=== PATIENT | female | born 1985 | race American Indian/Alaskan Native ===

== ENCOUNTER 2017-12-20 18:46 | Emergency (ER) | payer MEDICAID ==
[~2017-12-20] VITALS: Ht 167.6 cm; Wt 104.5 kg
[~2017-12-20 18:46] MED LIST: CLON-528 PO; FLUO20CA39 PO; HYDR-565 PO; INSU100V12 SQ; INSU100V36 SQ
[2017-12-20 19:46] LABS: BASOPHILS % (AUTO) 0.1 % (0-1); EOSINOPHILS # (AUTO) 0.2 X10'3 (0-0.9); EOSINOPHILS % (AUTO) 1.4 % (0-6); HEMOGLOBIN 15.2 g/dl (12.0-16.0); LYMPHOCYTES # (AUTO) 1.2 X10'3 (1.1-4.8); MEAN CORPUSCULAR HEMOGLOBIN 25.9 PG (27.0-31.0); MEAN CORPUSCULAR HGB CONC 33.8 % (33.0-36.5); MEAN CORPUSCULAR VOLUME 76.5 FL (78-98); MEAN PLATELET VOLUME 8.9 FL (7.4-10.4); MONOCYTES # (AUTO) 1.1 X10'3 (0-0.9); MONOCYTES % (AUTO) 8.3 % (2-12); NEUTROPHILS % (AUTO) 81.2 % (42-75); PLATELET COUNT 208 X10'3 (140-440); RED BLOOD COUNT 5.87 X10'6 (4.20-5.60); RED CELL DISTRIBUTION WIDTH 14.3 % (11.5-14.5); WHITE BLOOD COUNT 13.6 X10'3 (4.5-11.0)
[2017-12-20 19:56] LABS: PROTHROMBIN TIME 10.7 SECONDS (9.0-12.0)
[2017-12-20 20:00] LABS: ALANINE AMINOTRANSFERASE 33 U/L (12-78); ALBUMIN 3.3 G/DL (3.4-5.0); ALBUMIN/GLOBULIN RATIO 0.7 (1.1-1.5); ALKALINE PHOSPHATASE 108 IU/L (46-116); ANION GAP 10 (8-16); ASPARTATE AMINO TRANSFERASE 15 U/L (10-37); BILIRUBIN,TOTAL 1.1 MG/DL (0.1-1.0); BLOOD UREA NITROGEN 8 MG/DL (7-18); CALCIUM 9.2 MG/DL (8.5-10.1); CHLORIDE 99 MMOL/L (99-107); CREATININE 1.14 MG/DL (0.40-0.90); GLUCOSE 285 MG/DL (70-104); POTASSIUM 3.4 MMOL/L (3.5-5.1); SODIUM 136 MMOL/L (135-145); TOTAL CARBON DIOXIDE 26.9 MMOL/L (24-32); TOTAL PROTEIN 7.9 G/DL (6.4-8.2); eGFR 55 ML/MIN
[2017-12-20] MEDS ORDERED: ondansetron/PF 4mg/2ml inj IV ONE (21:40)
[2017-12-20] MEDS ORDERED: normal saline 1000ML IV soln IVB ONE (21:40)
[2017-12-20 21:59] LABS: LIPASE 51 U/L (73-393)
[2017-12-20] MEDS ORDERED: metoclopramide 5 mg/ml inj IV ONE (22:00)
[2017-12-20] MEDS ORDERED: diphenhydrAMINE 50 mg/ml inj IV ONE (22:00)
[2017-12-20 22:11] LABS: URINE HCG NEGATIVE (NEG)
[2017-12-20 22:12] LABS: CLARITY,URINE CLOUDY (Clear); COLOR,URINE YELLOW (Yellow); GLUCOSE, URINE 250 mg/dl (Neg); KETONES,URINE TRACE mg/dl (Neg); LEUKOCYTE ESTERASE ,URINE SMALL (Neg); NITRITES, URINE POSITIVE (Neg); OCCULT BLOOD,URINE MODERATE (Neg); PROTEIN,URINE >=300 mg/dl (Neg)
[2017-12-20 22:19] LABS: UA COLLECTION TYPE CLN CATCH MIDSTREAM
[2017-12-20 22:21] LABS: BACTERIA,URINE 4+ /HPF (Neg); SQUAMOUS EPITHELIAL CELL,UR MODERATE /LPF (FEW); WBC,URINE TNTC /HPF (0-4)
[2017-12-20] MEDS ORDERED: phenazopyridine 100mg tablet PO ONE (23:25)
[2017-12-20] MEDS ORDERED: ciprofloxacin 250mg tablet PO ONE (23:25)
[2017-12-20] MEDS ORDERED: ONDA8TAB6 PO (23:29)
[2017-12-20] MEDS ORDERED: CIPR-230 PO (23:29)
[2017-12-20] MEDS ORDERED: PHEN-824 PO (23:29)
[2017-12-20 23:49] VITALS: BP 114/71
== END 2017-12-20 23:53 | disposition home or self-care (01) ==
LOC: ER 18:47
DX: N39.0 Urinary tract infection, site not specified (principal); R10.9 Unspecified abdominal pain; R11.2 Nausea with vomiting, unspecified; E11.9 Type 2 diabetes mellitus without complications; J45.909 Unspecified asthma, uncomplicated; Z87.891 Personal history of nicotine dependence; Z90.710 Acquired absence of both cervix and uterus; Z88.8 Allergy status to other drugs, medicaments and biological substances; Z79.4 Long term (current) use of insulin; Z79.899 Other long term (current) drug therapy
CPT/HCPCS: 36415; 80053; 81001; 81025; 82948; 83690; 85025; 85610; 87077; 87088; 87186; 96361; 96374; 96375; 99284; J1200; J2765; J7030

== ENCOUNTER 2018-01-09 08:51 | Emergency (ER) | payer MEDICAID ==
[~2018-01-09] VITALS: Ht 167.6 cm; Wt 111.3 kg
[~2018-01-09 08:51] MED LIST changes: +CIPR-230 PO; +ONDA8TAB6 PO; +PHEN-824 PO
[2018-01-09] MEDS ORDERED: TETanus/Pertussis (Acell)/Diphther VAC/PF (Tdap-Adult) 0.5ml syringe IM ONE (10:35)
[2018-01-09] MEDS ORDERED: LIDOcaine 1% 30ml preserv. free vial IJ ONE (10:35)
[2018-01-09] MEDS ORDERED: LIDOcaine 1%/PF (10mg/ml) 5ml vial IJ ONE (11:20)
[2018-01-09] MEDS ORDERED: DOXY100C43 PO (11:52)
[2018-01-09] MEDS ORDERED: FLUC150T PO (11:52)
[2018-01-09] MEDS ORDERED: HYDR-569 PO (11:52)
[2018-01-09] MEDS ORDERED: CEPH-571 PO (11:52)
[2018-01-09 12:02] VITALS: BP 108/68
== END 2018-01-09 12:21 | disposition home or self-care (01) ==
LOC: ER 08:51
DX: N76.4 Abscess of vulva (principal); B37.3 Candidiasis of vulva and vagina; J45.909 Unspecified asthma, uncomplicated; E11.9 Type 2 diabetes mellitus without complications; Z90.710 Acquired absence of both cervix and uterus; Z79.4 Long term (current) use of insulin; Z79.899 Other long term (current) drug therapy; Z88.8 Allergy status to other drugs, medicaments and biological substances
CPT/HCPCS: 56405; 90471; 90715; 99284; A6449; J2001; J3490

== ENCOUNTER 2018-04-09 08:15 | Emergency (ER) | payer MEDICAID ==
[~2018-04-09] VITALS: Ht 167.6 cm; Wt 118.0 kg
[~2018-04-09 08:15] MED LIST changes: +CEPH-571 PO; -CIPR-230 PO; +HYDR-569 PO
[2018-04-09] MEDS ORDERED: morphine 4 MG/ML inj SYRINge IV PRN (08:35)
[2018-04-09] MEDS ORDERED: normal saline 1000ML IV soln IVB ONE (08:35)
[2018-04-09] MEDS ORDERED: ondansetron/PF 4mg/2ml inj IV ONE (08:35)
[2018-04-09 08:59] LABS: BASOPHILS % (AUTO) 0.3 % (0-1); EOSINOPHILS # (AUTO) 0.4 X10'3 (0-0.9); EOSINOPHILS % (AUTO) 3.5 % (0-6); HEMATOCRIT 43.2 % (35.0-45.0); HEMOGLOBIN 14.6 g/dl (12.0-16.0); LYMPHOCYTES # (AUTO) 2.7 X10'3 (1.1-4.8); LYMPHOCYTES % (AUTO) 22.1 % (21-51); MEAN CORPUSCULAR HEMOGLOBIN 26.9 PG (27.0-31.0); MEAN CORPUSCULAR HGB CONC 33.8 % (33.0-36.5); MEAN CORPUSCULAR VOLUME 79.6 FL (78-98); MEAN PLATELET VOLUME 8.9 FL (7.4-10.4); MONOCYTES # (AUTO) 0.5 X10'3 (0-0.9); MONOCYTES % (AUTO) 4.4 % (2-12); NEUTROPHILS # (AUTO) 8.4 X10'3 (1.8-7.7); NEUTROPHILS % (AUTO) 69.7 % (42-75); PLATELET COUNT 212 X10'3 (140-440); RED BLOOD COUNT 5.43 X10'6 (4.20-5.60); RED CELL DISTRIBUTION WIDTH 13.8 % (11.5-14.5); WHITE BLOOD COUNT 12.1 X10'3 (4.5-11.0)
[2018-04-09 09:00] LABS: INR 0.9 INR; PROTHROMBIN TIME 9.8 SECONDS (9.0-12.0)
[2018-04-09 09:07] LABS: ALANINE AMINOTRANSFERASE 33 U/L (12-78); ALBUMIN 3.1 G/DL (3.4-5.0); ALBUMIN/GLOBULIN RATIO 0.7 (1.1-1.5); ALKALINE PHOSPHATASE 118 IU/L (46-116); ANION GAP 7 (8-16); ASPARTATE AMINO TRANSFERASE 11 U/L (10-37); BILIRUBIN,TOTAL 0.3 MG/DL (0.1-1.0); BLOOD UREA NITROGEN 8 MG/DL (7-18); BUN/CREATININE RATIO 8.7 (6.6-38.0); CALCIUM 8.5 MG/DL (8.5-10.1); CHLORIDE 98 MMOL/L (99-107); CREATININE 0.92 MG/DL (0.40-0.90); GLUCOSE 370 MG/DL (70-104); LIPASE 95 U/L (73-393); POTASSIUM 3.8 MMOL/L (3.5-5.1); SODIUM 132 MMOL/L (135-145); TOTAL CARBON DIOXIDE 27.1 MMOL/L (24-32); TOTAL PROTEIN 7.3 G/DL (6.4-8.2); eGFR 70 ML/MIN
[2018-04-09 10:10] LABS: URINE HCG NEGATIVE (NEG)
[2018-04-09 10:11] LABS: CLARITY,URINE CLOUDY (Clear); COLOR,URINE YELLOW (Yellow); GLUCOSE, URINE >=1000 mg/dl (Neg); KETONES,URINE NEGATIVE (Neg); LEUKOCYTE ESTERASE ,URINE TRACE (Neg); NITRITES, URINE NEGATIVE (Neg); OCCULT BLOOD,URINE TRACE-LYSED (Neg); PH,URINE 6.5 (4.8-8.0); PROTEIN,URINE NEGATIVE (Neg); UROBILINOGEN,URINE 0.2 E.U/dL (0.2-1.0)
[2018-04-09 10:17] LABS: UA COLLECTION TYPE CLN CATCH MIDSTREAM
[2018-04-09 10:19] LABS: RBC,URINE 0-2 /HPF (0-2); WBC,URINE 50-100 /HPF (0-4)
[2018-04-09 10:20] LABS: BACTERIA,URINE FEW /HPF (Neg); SQUAMOUS EPITHELIAL CELL,UR MODERATE /LPF (FEW)
[2018-04-09 10:22] LABS: WBC CLUMPS,URINE MODERATE /HPF (NEGATIVE)
[2018-04-09] MEDS ORDERED: BACDS PO (10:26)
[2018-04-09] MEDS ORDERED: ONDA4TAB9 SL (10:26)
[2018-04-09 10:45] VITALS: BP 136/74
== END 2018-04-09 10:45 | disposition home or self-care (01) ==
LOC: ER 08:15
DX: N39.0 Urinary tract infection, site not specified (principal); E11.9 Type 2 diabetes mellitus without complications; J45.909 Unspecified asthma, uncomplicated; Z90.710 Acquired absence of both cervix and uterus; Z88.8 Allergy status to other drugs, medicaments and biological substances; Z79.4 Long term (current) use of insulin; Z79.899 Other long term (current) drug therapy
CPT/HCPCS: 36415; 80053; 81001; 81025; 82948; 83690; 85025; 85610; 87088; 96374; 96375; 99285; J2270; J2405; J7030

== ENCOUNTER 2018-04-11 00:58 | Inpatient (IN) | payer MEDICAID ==
[2018-04-11] VITALS (16 sets, daily range): BP systolic 90–157; BP diastolic 51–78
[~2018-04-11] VITALS: Ht 167.6 cm; Wt 126.2 kg
[~2018-04-11 00:58] MED LIST changes: +BACDS PO; +ONDA4TAB9 SL
[2018-04-11] MEDS ORDERED: acetaminophen 325mg tablet PO ONE (01:35)
[2018-04-11] MEDS ORDERED: normal saline 1000ML IV soln IV ONE (01:35)
[2018-04-11 01:44] LABS: PROTHROMBIN TIME 10.5 SECONDS (9.0-12.0)
[2018-04-11 01:54] LABS: ALANINE AMINOTRANSFERASE 22 U/L (12-78); ALBUMIN 2.9 G/DL (3.4-5.0); ALBUMIN/GLOBULIN RATIO 0.6 (1.1-1.5); ALKALINE PHOSPHATASE 113 IU/L (46-116); AMYLASE 15 U/L (25-115); ANION GAP 7 (8-16); ASPARTATE AMINO TRANSFERASE 12 U/L (10-37); BILIRUBIN,TOTAL 0.7 MG/DL (0.1-1.0); BLOOD UREA NITROGEN 6 MG/DL (7-18); CALCIUM 8.5 MG/DL (8.5-10.1); CHLORIDE 94 MMOL/L (99-107); CREATININE 1.19 MG/DL (0.40-0.90); LIPASE 77 U/L (73-393); POTASSIUM 4.3 MMOL/L (3.5-5.1); SODIUM 128 MMOL/L (135-145); TOTAL CARBON DIOXIDE 27.4 MMOL/L (24-32); TOTAL PROTEIN 7.5 G/DL (6.4-8.2); eGFR 52 ML/MIN
[2018-04-11 01:56] LABS: GLUCOSE 472 MG/DL (70-104)
[2018-04-11 02:04] LABS: URINE HCG NEGATIVE (NEG)
[2018-04-11 02:11] LABS: BASOPHILS % (AUTO) 0.3 % (0-1); EOSINOPHILS # (AUTO) 0.3 X10'3 (0-0.9); HEMATOCRIT 42.2 % (35.0-45.0); HEMOGLOBIN 14.3 g/dl (12.0-16.0); LYMPHOCYTES # (AUTO) 2.3 X10'3 (1.1-4.8); LYMPHOCYTES % (AUTO) 15.6 % (21-51); MEAN CORPUSCULAR HEMOGLOBIN 27.1 PG (27.0-31.0); MEAN CORPUSCULAR HGB CONC 33.8 % (33.0-36.5); MEAN CORPUSCULAR VOLUME 80.4 FL (78-98); MEAN PLATELET VOLUME 9.3 FL (7.4-10.4); MONOCYTES # (AUTO) 1.1 X10'3 (0-0.9); MONOCYTES % (AUTO) 7.1 % (2-12); NEUTROPHILS # (AUTO) 11.1 X10'3 (1.8-7.7); PLATELET COUNT 194 X10'3 (140-440); RED BLOOD COUNT 5.25 X10'6 (4.20-5.60); RED CELL DISTRIBUTION WIDTH 13.9 % (11.5-14.5); WHITE BLOOD COUNT 14.8 X10'3 (4.5-11.0)
[2018-04-11 02:14] LABS: CLARITY,URINE CLEAR (Clear); COLOR,URINE YELLOW (Yellow); GLUCOSE, URINE >=1000 mg/dl (Neg); KETONES,URINE 15 mg/dl (Neg); LEUKOCYTE ESTERASE ,URINE NEGATIVE (Neg); NITRITES, URINE NEGATIVE (Neg); OCCULT BLOOD,URINE NEGATIVE (Neg); PH,URINE 6.5 (4.8-8.0); PROTEIN,URINE TRACE mg/dl (Neg); UROBILINOGEN,URINE 0.2 E.U/dL (0.2-1.0)
[2018-04-11 02:20] LABS: UA COLLECTION TYPE CLN CATCH MIDSTREAM
[2018-04-11 02:29] LABS: SQUAMOUS EPITHELIAL CELL,UR MODERATE /LPF (FEW)
[2018-04-11 02:30] LABS: BACTERIA,URINE FEW /HPF (Neg); RBC,URINE 0-2 /HPF (0-2); YEAST FEW /HPF (NEGATIVE)
[2018-04-11 03:04] LABS: PLATELET ESTIMATE NORMAL; TOTAL CELLS COUNTED 100
[2018-04-11] MEDS ORDERED: ondansetron/PF 4mg/2ml inj IV ONE (03:10)
[2018-04-11] MEDS ORDERED: ketorolac trometh. 30mg/ml inj. IV ONE (03:10)
[2018-04-11] MEDS ORDERED: normal saline 1000ML IV soln IVB ONE (03:10)
[2018-04-11] MEDS ORDERED: insulin regular, human 10 units/0.1 ml syringe IV ONE ×2 (03:50→14:45)
[2018-04-11] MEDS ORDERED: insulin Lispro (HumaLOG) vial - multi-dose SQ SCH ×2 (05:05→14:45)
[2018-04-11] MEDS ORDERED: ipratropium/albuterol 3ml nebule NEB PRN (05:05)
[2018-04-11] MEDS ORDERED: mag hydrox/Alum hydrox/simeth 30ml oral suspension PO PRN (05:05)
[2018-04-11] MEDS ORDERED: potassium Cl 40MEQ/NS 500ml 500 ML IV PRN ×2 (05:05)
[2018-04-11] MEDS ORDERED: bisacodyl 10mg suppository rectal RC PRN (05:05)
[2018-04-11] MEDS ORDERED: MESSAGE TO PHARMACY PO ONE (05:05)
[2018-04-11] MEDS ORDERED: acetaminophen 325mg tablet PO PRN (05:05)
[2018-04-11] MEDS ORDERED: dextrose 50%-water 50ml dispensing syringe IV PRN ×5 (05:05→19:10)
[2018-04-11] MEDS ORDERED: dextrose ORAL solution 15 GM/59 ML bottle PO PRN ×4 (05:05→19:10)
[2018-04-11] MEDS ORDERED: potassium Cl 20 mEq SR tablet PO PRN ×2 (05:05)
[2018-04-11] MEDS ORDERED: magnesium 4gm in 100ml NS 100 ML IV PRN (05:05)
[2018-04-11] MEDS ORDERED: magnesium 1gm/100ml D5W IVPB 100 ML IV PRN (05:05)
[2018-04-11] MEDS ORDERED: glucagon, human recombinant 1mg kit SUBCUT PRN ×2 (05:05→19:10)
[2018-04-11] MEDS ORDERED: HYDROmorphone inj. 0.5 MG/0.5 ML DISP.SYRIN IV PRN ×2 (05:05)
[2018-04-11] MEDS: normal saline 1000ml 1,000 ML IV SCH ×2 (05:05→15:05)
[2018-04-11] MEDS ORDERED: HYDROmorphone 1 mg/ml syringe ONE (05:43)
[2018-04-11] MEDS: enoxaparin 40mg/0.4ml syringe SQ SCH (07:56)
[2018-04-11] MEDS: K and/or MAG REPLACEMENT MC SCH (08:00)
[2018-04-11] MEDS ORDERED: piperacillin/tazo 3.375gm/50ml 50 ML IV SCH (08:00)
[2018-04-11] MEDS ORDERED: HYDROmorphone 1 mg/ml syringe IV PRN (09:50)
[2018-04-11] MEDS: HYDROmorphone 1 mg/ml syringe IV PRN ×3 (10:04→22:11)
[2018-04-11 10:26] LABS: CLARITY,URINE SLIGHTLY CLOUDY (Clear); COLOR,URINE YELLOW (Yellow); GLUCOSE, URINE >=1000 mg/dl (Neg); KETONES,URINE 15 mg/dl (Neg); LEUKOCYTE ESTERASE ,URINE NEGATIVE (Neg); NITRITES, URINE NEGATIVE (Neg); OCCULT BLOOD,URINE NEGATIVE (Neg); PROTEIN,URINE NEGATIVE (Neg); UA COLLECTION TYPE CLN CATCH MIDSTREAM; UROBILINOGEN,URINE 0.2 E.U/dL (0.2-1.0)
[2018-04-11 10:44] LABS: RBC,URINE NONE SEEN /HPF (0-2); SQUAMOUS EPITHELIAL CELL,UR FEW /LPF (FEW); YEAST MODERATE /HPF (NEGATIVE)
[2018-04-11 10:45] LABS: BACTERIA,URINE FEW /HPF (Neg)
[2018-04-11] MEDS ORDERED: ringers solution, lacted 1,000 ML IV SCH (11:23)
[2018-04-11] MEDS ORDERED: morphine 4 MG/ML inj SYRINge IV PRN ×2 (11:25)
[2018-04-11] MEDS ORDERED: meperidine/PF 25mg/ml syringe IV PRN ×3 (11:25)
[2018-04-11] MEDS ORDERED: insulin Lispro (HumaLOG) vial - multi-dose SQ ONE (11:25)
[2018-04-11] MEDS ORDERED: ondansetron/PF 4mg/2ml inj IV PRN (11:25)
[2018-04-11] MEDS ORDERED: proCHLORperazine 10 MG/2 ml inj IV PRN (11:25)
[2018-04-11] MEDS ORDERED: BUPIVAcaine/PF 2.5mg/ml (0.25%) 10ml vial ONE (12:15)
[2018-04-11] MEDS ORDERED: glycopyrrolate 0.2mg/ml inj ONE (12:47)
[2018-04-11] MEDS ORDERED: neostigmine methylsulfate 1 MG/ML 10ml vial ONE (12:47)
[2018-04-11] MEDS ORDERED: sevoflurane 250ml liquid IH ONE (12:47)
[2018-04-11] MEDS ORDERED: fentaNYL/PF 50MCG/1 ML 2ML syringe ONE (12:54)
[2018-04-11] MEDS ORDERED: propofol inj 20 ML IV ONE (12:55)
[2018-04-11] MEDS ORDERED: LIDOcaine 2% (20mg/ml) 5ml vial ONE (12:55)
[2018-04-11] MEDS ORDERED: midazolam 2 mg/2 ml injection ONE (12:55)
[2018-04-11] MEDS ORDERED: rocuronium 10mg/ml inj IV ONE (12:57)
[2018-04-11] MEDS ORDERED: LIDOcaine 2% 5ml jelly ONE (12:59)
[2018-04-11] MEDS ORDERED: meperidine/PF 50mg/ml syringe ONE (14:29)
[2018-04-11] MEDS ORDERED: insulin regular, human 100 UNIT in normal saline 100ml IV soln 99 ML IV SCH ×2 (14:45)
[2018-04-11] MEDS ORDERED: albuterol 2.5 MG/3 ML nebule ONE (14:46)
[2018-04-11] MEDS ORDERED: propofol 1000mg/100ml bottle 100 ML IV PRN (14:54)
[2018-04-11] MEDS ORDERED: FENTANYL-0.9 % NACL/PF 100 ML IV PRN (14:54)
[2018-04-11 15:20] LABS: BASOPHILS % (AUTO) 0.3 % (0-1); EOSINOPHILS # (AUTO) 0.2 X10'3 (0-0.9); EOSINOPHILS % (AUTO) 1.5 % (0-6); HEMATOCRIT 37.6 % (35.0-45.0); HEMOGLOBIN 12.4 g/dl (12.0-16.0); LYMPHOCYTES # (AUTO) 1.9 X10'3 (1.1-4.8); LYMPHOCYTES % (AUTO) 18.8 % (21-51); MEAN CORPUSCULAR HGB CONC 33.1 % (33.0-36.5); MEAN CORPUSCULAR VOLUME 81.6 FL (78-98); MEAN PLATELET VOLUME 8.7 FL (7.4-10.4); MONOCYTES # (AUTO) 0.2 X10'3 (0-0.9); MONOCYTES % (AUTO) 1.9 % (2-12); NEUTROPHILS # (AUTO) 7.8 X10'3 (1.8-7.7); NEUTROPHILS % (AUTO) 77.5 % (42-75); PLATELET COUNT 161 X10'3 (140-440); RED BLOOD COUNT 4.61 X10'6 (4.20-5.60); RED CELL DISTRIBUTION WIDTH 12.9 % (11.5-14.5); WHITE BLOOD COUNT 10.1 X10'3 (4.5-11.0)
[2018-04-11 15:25] LABS: ABG BASE EXCESS -1.4 mmol/L (-2.0-3.0); ABG HCO3 23.6 mmol/L (22.0-26.0); ABG OXYGEN SATURATION 98.4 % (95-98); ABG PCO2 (T) 40.8 mmHg (32.0-45.0); ABG PO2 (T) 134.2 mmHg (83-108); ALLEN'S TEST Positive; FCOHb 1.1 % (0.5-1.5); FMetHb 0.1 % (0.3-1.12); FO2Hb 97.2 % (94-100); PEEP 5 cm H2O; TOTAL HEMOGLOBIN 12.2 G/dl (12.0-16.0)
[2018-04-11 15:37] LABS: ALANINE AMINOTRANSFERASE 19 U/L (12-78); ALBUMIN 2.3 G/DL (3.4-5.0); ALBUMIN/GLOBULIN RATIO 0.6 (1.1-1.5); ALKALINE PHOSPHATASE 89 IU/L (46-116); ANION GAP 9 (8-16); ASPARTATE AMINO TRANSFERASE 8 U/L (10-37); BILIRUBIN,TOTAL 0.5 MG/DL (0.1-1.0); BLOOD UREA NITROGEN 8 MG/DL (7-18); CALCIUM 7.5 MG/DL (8.5-10.1); CHLORIDE 103 MMOL/L (99-107); CREATININE 1.15 MG/DL (0.40-0.90); GLUCOSE 319 MG/DL (70-104); POTASSIUM 3.9 MMOL/L (3.5-5.1); SODIUM 137 MMOL/L (135-145); TOTAL CARBON DIOXIDE 25.2 MMOL/L (24-32); TOTAL PROTEIN 6.3 G/DL (6.4-8.2); eGFR 54 ML/MIN
[2018-04-11] MEDS: piperacillin/tazo 3.375gm/50ml 50 ML IV SCH (18:14)
[2018-04-11] MEDS: insulin Lispro (HumaLOG) vial - multi-dose SQ SCH (19:58)
[2018-04-11] MEDS: lactobacillus rhamnosus 10,000 MMU CELLS/CAPSULE PO SCH (19:59)
[2018-04-11] MEDS: insulin glargine (Lantus) pen - multi-dose SQ SCH (19:59)
[2018-04-11] MEDS ORDERED: insulin glargine (Lantus) pen - multi-dose SQ SCH (21:00)
[2018-04-11] MEDS: ondansetron/PF 4mg/2ml inj IV PRN (22:19)
[2018-04-11] MEDS ORDERED: normal saline 500ml IV soln 500 ML IV ONE (22:25)
[2018-04-12] VITALS (23 sets, daily range): BP systolic 87–148; BP diastolic 40–80
[2018-04-12] MEDS: piperacillin/tazo 3.375gm/50ml 50 ML IV SCH ×3 (00:12→16:35)
[2018-04-12] MEDS: normal saline 1000ml 1,000 ML IV SCH ×3 (01:38→21:05)
[2018-04-12] MEDS: HYDROmorphone 1 mg/ml syringe IV PRN ×4 (02:17→21:28)
[2018-04-12] MEDS: insulin Lispro (HumaLOG) vial - multi-dose SQ SCH ×5 (02:20→21:11)
[2018-04-12 05:06] LABS: BASOPHILS % (AUTO) 0.3 % (0-1); EOSINOPHILS # (AUTO) 0.3 X10'3 (0-0.9); EOSINOPHILS % (AUTO) 2.5 % (0-6); HEMATOCRIT 33.9 % (35.0-45.0); HEMOGLOBIN 11.3 g/dl (12.0-16.0); LYMPHOCYTES # (AUTO) 2.3 X10'3 (1.1-4.8); LYMPHOCYTES % (AUTO) 17.2 % (21-51); MEAN CORPUSCULAR HEMOGLOBIN 27.2 PG (27.0-31.0); MEAN CORPUSCULAR HGB CONC 33.2 % (33.0-36.5); MEAN CORPUSCULAR VOLUME 81.7 FL (78-98); MEAN PLATELET VOLUME 8.8 FL (7.4-10.4); MONOCYTES % (AUTO) 7.8 % (2-12); NEUTROPHILS # (AUTO) 9.6 X10'3 (1.8-7.7); NEUTROPHILS % (AUTO) 72.2 % (42-75); PLATELET COUNT 197 X10'3 (140-440); RED BLOOD COUNT 4.15 X10'6 (4.20-5.60); RED CELL DISTRIBUTION WIDTH 13.9 % (11.5-14.5); WHITE BLOOD COUNT 13.3 X10'3 (4.5-11.0)
[2018-04-12 05:26] LABS: ALANINE AMINOTRANSFERASE 12 U/L (12-78); ALBUMIN/GLOBULIN RATIO 0.5 (1.1-1.5); ALKALINE PHOSPHATASE 83 IU/L (46-116); ANION GAP 5 (8-16); ASPARTATE AMINO TRANSFERASE 10 U/L (10-37); BILIRUBIN,TOTAL 0.6 MG/DL (0.1-1.0); BLOOD UREA NITROGEN 7 MG/DL (7-18); BUN/CREATININE RATIO 7.2 (6.6-38.0); CALCIUM 7.6 MG/DL (8.5-10.1); CHLORIDE 104 MMOL/L (99-107); CREATININE 0.97 MG/DL (0.40-0.90); GLUCOSE 252 MG/DL (70-104); MAGNESIUM 1.9 MG/DL (1.5-2.4); POTASSIUM 3.8 MMOL/L (3.5-5.1); SODIUM 136 MMOL/L (135-145); TOTAL PROTEIN 6.1 G/DL (6.4-8.2); eGFR 66 ML/MIN
[2018-04-12] MEDS: ondansetron/PF 4mg/2ml inj IV PRN (06:43)
[2018-04-12] MEDS: lactobacillus rhamnosus 10,000 MMU CELLS/CAPSULE PO SCH ×2 (06:46→21:11)
[2018-04-12] MEDS: enoxaparin 40mg/0.4ml syringe SQ SCH (06:46)
[2018-04-12] MEDS: K and/or MAG REPLACEMENT MC SCH (07:32)
[2018-04-12] MEDS ORDERED: HYDROcodone/acetaminophen 5mg/325mg tablet PO PRN (08:25)
[2018-04-12] MEDS: HYDROcodone/acetaminophen 5mg/325mg tablet PO PRN ×2 (08:47→17:03)
[2018-04-12] MEDS ORDERED: QUET50TA PO (09:31)
[2018-04-12] MEDS ORDERED: NABU750T2 PO (09:31)
[2018-04-12] MEDS ORDERED: DIVA-76 PO (09:31)
[2018-04-12] MEDS ORDERED: AMIT-189 PO (09:31)
[2018-04-12] MEDS ORDERED: ESOM20CA PO (09:31)
[2018-04-12] MEDS ORDERED: PRAZ1CAP5 PO (09:31)
[2018-04-12] MEDS ORDERED: BENZ1TAB7 PO (09:31)
[2018-04-12] MEDS ORDERED: BUPR-94 PO (09:31)
[2018-04-12] MEDS ORDERED: LURA80TA3 PO ×2 (09:31→14:07)
[2018-04-12] MEDS ORDERED: PRAM0.252 PO (09:31)
[2018-04-12] MEDS ORDERED: DICY10CA88 PO (09:31)
[2018-04-12] MEDS ORDERED: PREVCR VG (09:54)
[2018-04-12] MEDS ORDERED: HYDROcodone/acetaminophen 10/325mg tab PO PRN (14:00)
[2018-04-12] MEDS ORDERED: pramipexole 0.25mg tablet PO PRN (14:00)
[2018-04-12] MEDS ORDERED: dicyclomine 10 MG capsule PO PRN (14:00)
[2018-04-12] MEDS ORDERED: AMIT-106 PO (14:08)
[2018-04-12] MEDS: prazosin 1mg capsule PO SCH (21:00)
[2018-04-12] MEDS: insulin glargine (Lantus) pen - multi-dose SQ SCH (21:09)
[2018-04-12] MEDS: amitriptyline 25mg tablet PO SCH (21:11)
[2018-04-12] MEDS: QUEtiapine 25mg tablet PO SCH (21:12)
[2018-04-12] MEDS: benztropine 1mg tablet PO SCH (21:12)
[2018-04-12] MEDS: divalproex sodium 500mg tablet.DR PO SCH (21:15)
[2018-04-13] MEDS: normal saline 1000ml 1,000 ML IV SCH ×3 (01:06→18:47)
[2018-04-13] MEDS: piperacillin/tazo 3.375gm/50ml 50 ML IV SCH ×3 (01:06→16:44)
[2018-04-13 03:00] VITALS: BP 112/81
[2018-04-13] MEDS: HYDROcodone/acetaminophen 5mg/325mg tablet PO PRN ×3 (05:11→18:48)
[2018-04-13 06:00] VITALS: BP 119/81
[2018-04-13 07:07] LABS: BASOPHILS % (AUTO) 0.3 % (0-1); EOSINOPHILS # (AUTO) 0.3 X10'3 (0-0.9); EOSINOPHILS % (AUTO) 2.5 % (0-6); HEMATOCRIT 32.7 % (35.0-45.0); HEMOGLOBIN 10.9 g/dl (12.0-16.0); LYMPHOCYTES # (AUTO) 2.1 X10'3 (1.1-4.8); LYMPHOCYTES % (AUTO) 20.9 % (21-51); MEAN CORPUSCULAR HGB CONC 33.2 % (33.0-36.5); MEAN CORPUSCULAR VOLUME 81.2 FL (78-98); MEAN PLATELET VOLUME 8.8 FL (7.4-10.4); MONOCYTES # (AUTO) 0.7 X10'3 (0-0.9); MONOCYTES % (AUTO) 6.8 % (2-12); NEUTROPHILS % (AUTO) 69.5 % (42-75); PLATELET COUNT 194 X10'3 (140-440); RED BLOOD COUNT 4.03 X10'6 (4.20-5.60); RED CELL DISTRIBUTION WIDTH 14.1 % (11.5-14.5); WHITE BLOOD COUNT 10.1 X10'3 (4.5-11.0)
[2018-04-13] MEDS: enoxaparin 40mg/0.4ml syringe SQ SCH (07:57)
[2018-04-13] MEDS: pantoprazole 40mg Tablet.DR PO SCH (07:58)
[2018-04-13] MEDS: divalproex sodium 500mg tablet.DR PO SCH ×2 (07:58→20:57)
[2018-04-13] MEDS: lactobacillus rhamnosus 10,000 MMU CELLS/CAPSULE PO SCH ×2 (07:58→20:43)
[2018-04-13] MEDS: FLUoxetine 20mg capsule PO SCH (07:58)
[2018-04-13] MEDS: benztropine 1mg tablet PO SCH ×2 (07:58→20:43)
[2018-04-13] MEDS: K and/or MAG REPLACEMENT MC SCH (08:00)
[2018-04-13 08:01] LABS: ALANINE AMINOTRANSFERASE 15 U/L (12-78); ALBUMIN 1.9 G/DL (3.4-5.0); ALBUMIN/GLOBULIN RATIO 0.4 (1.1-1.5); ALKALINE PHOSPHATASE 84 IU/L (46-116); ANION GAP 11 (8-16); ASPARTATE AMINO TRANSFERASE 7 U/L (10-37); BILIRUBIN,TOTAL 0.3 MG/DL (0.1-1.0); BLOOD UREA NITROGEN 6 MG/DL (7-18); BUN/CREATININE RATIO 6.8 (6.6-38.0); CALCIUM 7.7 MG/DL (8.5-10.1); CHLORIDE 103 MMOL/L (99-107); CREATININE 0.88 MG/DL (0.40-0.90); GLUCOSE 221 MG/DL (70-104); MAGNESIUM 1.9 MG/DL (1.5-2.4); POTASSIUM 3.9 MMOL/L (3.5-5.1); SODIUM 138 MMOL/L (135-145); TOTAL CARBON DIOXIDE 23.8 MMOL/L (24-32); TOTAL PROTEIN 6.2 G/DL (6.4-8.2); eGFR 74 ML/MIN
[2018-04-13] MEDS: insulin Lispro (HumaLOG) vial - multi-dose SQ SCH ×3 (09:19→18:56)
[2018-04-13 11:00] VITALS: BP 109/63
[2018-04-13] MEDS: HYDROmorphone 1 mg/ml syringe IV PRN ×2 (11:19→20:42)
[2018-04-13 15:00] VITALS: BP 114/77
[2018-04-13] MEDS ORDERED: normal saline 1000ml 1,000 ML IVB ONE (17:13)
[2018-04-13] MEDS: nicotine 21mg patch - 24 hr TD SCH (17:38)
[2018-04-13 18:00] VITALS: BP 114/71
[2018-04-13 18:32] LABS: C-REACTIVE PROTEIN 13.88 MG/DL (0.0-0.5); CREATINE KINASE 44 U/L (26-192); LIPASE 51 U/L (73-393)
[2018-04-13] MEDS: prazosin 1mg capsule PO SCH (20:42)
[2018-04-13] MEDS: QUEtiapine 25mg tablet PO SCH (20:43)
[2018-04-13] MEDS: clonazePAM 0.5mg tablet PO PRN (20:43)
[2018-04-13] MEDS: amitriptyline 25mg tablet PO SCH (20:59)
[2018-04-13 22:00] VITALS: BP 101/74
[2018-04-13] MEDS: insulin glargine (Lantus) pen - multi-dose SQ SCH (22:31)
[2018-04-14] MEDS: piperacillin/tazo 3.375gm/50ml 50 ML IV SCH ×3 (00:06→15:51)
[2018-04-14 02:00] VITALS: BP 104/79
[2018-04-14] MEDS: HYDROmorphone 1 mg/ml syringe IV PRN ×5 (04:46→23:59)
[2018-04-14 06:00] VITALS: BP_SYST 119; BP_SYST 161; BP_DIAS 66; BP_DIAS 81
[2018-04-14 06:02] LABS: BASOPHILS % (AUTO) 0.4 % (0-1); EOSINOPHILS # (AUTO) 0.3 X10'3 (0-0.9); HEMATOCRIT 30.3 % (35.0-45.0); HEMOGLOBIN 10.4 g/dl (12.0-16.0); LYMPHOCYTES # (AUTO) 1.7 X10'3 (1.1-4.8); LYMPHOCYTES % (AUTO) 22.7 % (21-51); MEAN CORPUSCULAR HEMOGLOBIN 27.7 PG (27.0-31.0); MEAN CORPUSCULAR HGB CONC 34.3 % (33.0-36.5); MEAN CORPUSCULAR VOLUME 80.9 FL (78-98); MONOCYTES # (AUTO) 0.6 X10'3 (0-0.9); MONOCYTES % (AUTO) 8.1 % (2-12); NEUTROPHILS # (AUTO) 4.7 X10'3 (1.8-7.7); NEUTROPHILS % (AUTO) 64.8 % (42-75); PLATELET COUNT 231 X10'3 (140-440); RED BLOOD COUNT 3.75 X10'6 (4.20-5.60); WHITE BLOOD COUNT 7.3 X10'3 (4.5-11.0)
[2018-04-14 06:42] LABS: ANION GAP 8 (8-16); BLOOD UREA NITROGEN 6 MG/DL (7-18); BUN/CREATININE RATIO 7.1 (6.6-38.0); CHLORIDE 104 MMOL/L (99-107); CREATININE 0.85 MG/DL (0.40-0.90); GLUCOSE 225 MG/DL (70-104); POTASSIUM 3.8 MMOL/L (3.5-5.1); SODIUM 138 MMOL/L (135-145); TOTAL CARBON DIOXIDE 25.7 MMOL/L (24-32)
[2018-04-14 06:43] LABS: ALANINE AMINOTRANSFERASE 10 U/L (12-78); ALBUMIN 1.8 G/DL (3.4-5.0); ALBUMIN/GLOBULIN RATIO 0.5 (1.1-1.5); ALKALINE PHOSPHATASE 75 IU/L (46-116); ASPARTATE AMINO TRANSFERASE 9 U/L (10-37); BILIRUBIN,TOTAL 0.3 MG/DL (0.1-1.0); CALCIUM 7.5 MG/DL (8.5-10.1); MAGNESIUM 1.8 MG/DL (1.5-2.4); TOTAL PROTEIN 5.8 G/DL (6.4-8.2); eGFR 77 ML/MIN
[2018-04-14] MEDS: pantoprazole 40mg Tablet.DR PO SCH (07:29)
[2018-04-14] MEDS: benztropine 1mg tablet PO SCH ×2 (07:29→20:03)
[2018-04-14] MEDS: lactobacillus rhamnosus 10,000 MMU CELLS/CAPSULE PO SCH ×2 (07:29→20:04)
[2018-04-14] MEDS: FLUoxetine 20mg capsule PO SCH (07:30)
[2018-04-14] MEDS: lurasidone 20mg tablet PO SCH (07:30)
[2018-04-14] MEDS: enoxaparin 40mg/0.4ml syringe SQ SCH (07:32)
[2018-04-14] MEDS: nicotine 21mg patch - 24 hr TD SCH (07:33)
[2018-04-14] MEDS: HYDROcodone/acetaminophen 5mg/325mg tablet PO PRN ×2 (07:44→15:50)
[2018-04-14] MEDS: K and/or MAG REPLACEMENT MC SCH (08:00)
[2018-04-14] MEDS: insulin Lispro (HumaLOG) vial - multi-dose SQ SCH ×3 (08:42→20:07)
[2018-04-14] MEDS: divalproex sodium 250mg tablet PO SCH ×2 (09:03→20:03)
[2018-04-14 11:00] VITALS: BP 111/73
[2018-04-14] MEDS ORDERED: diatr meglu/diatrizoate 30ml oral sol.-(3 dose) bottle PO ONE (11:10)
[2018-04-14] MEDS ORDERED: magnesium hydroxide 30ml (MOM) UD suspension PO ONE (11:10)
[2018-04-14 15:45] VITALS: BP 123/83
[2018-04-14 19:00] VITALS: BP 133/85
[2018-04-14 23:00] VITALS: BP 109/73
[2018-04-14] MEDS: prazosin 1mg capsule PO SCH (23:06)
[2018-04-14] MEDS: amitriptyline 25mg tablet PO SCH (23:18)
[2018-04-14] MEDS: insulin glargine (Lantus) pen - multi-dose SQ SCH (23:18)
[2018-04-14] MEDS: QUEtiapine 25mg tablet PO SCH (23:19)
[2018-04-15] VITALS: BP 118/74
[2018-04-15 05:54] LABS: BASOPHILS % (AUTO) 0.5 % (0-1); EOSINOPHILS # (AUTO) 0.3 X10'3 (0-0.9); HEMOGLOBIN 10.4 g/dl (12.0-16.0); LYMPHOCYTES # (AUTO) 2.2 X10'3 (1.1-4.8); LYMPHOCYTES % (AUTO) 23.6 % (21-51); MEAN CORPUSCULAR HEMOGLOBIN 27.3 PG (27.0-31.0); MEAN CORPUSCULAR HGB CONC 33.5 % (33.0-36.5); MEAN CORPUSCULAR VOLUME 81.5 FL (78-98); MEAN PLATELET VOLUME 7.9 FL (7.4-10.4); MONOCYTES # (AUTO) 0.9 X10'3 (0-0.9); NEUTROPHILS # (AUTO) 5.9 X10'3 (1.8-7.7); NEUTROPHILS % (AUTO) 62.9 % (42-75); PLATELET COUNT 258 X10'3 (140-440); RED CELL DISTRIBUTION WIDTH 13.1 % (11.5-14.5); WHITE BLOOD COUNT 9.3 X10'3 (4.5-11.0)
[2018-04-15 05:57] LABS: ANION GAP 8 (8-16); CHLORIDE 102 MMOL/L (99-107); GLUCOSE 139 MG/DL (70-104); POTASSIUM 3.6 MMOL/L (3.5-5.1); SODIUM 138 MMOL/L (135-145); TOTAL CARBON DIOXIDE 27.8 MMOL/L (24-32)
[2018-04-15 05:58] LABS: ALANINE AMINOTRANSFERASE 14 U/L (12-78); ALBUMIN 1.9 G/DL (3.4-5.0); ALBUMIN/GLOBULIN RATIO 0.4 (1.1-1.5); ALKALINE PHOSPHATASE 83 IU/L (46-116); ASPARTATE AMINO TRANSFERASE 12 U/L (10-37); BILIRUBIN,TOTAL 0.3 MG/DL (0.1-1.0); MAGNESIUM 2.1 MG/DL (1.5-2.4); TOTAL PROTEIN 6.3 G/DL (6.4-8.2)
[2018-04-15 06:14] LABS: BLOOD UREA NITROGEN 2 MG/DL (7-18); BUN/CREATININE RATIO 4.3 (6.6-38.0); CREATININE 0.47 MG/DL (0.40-0.90); eGFR > 90 ML/MIN
[2018-04-15] MEDS: K and/or MAG REPLACEMENT MC SCH (07:08)
[2018-04-15] MEDS: piperacillin/tazo 3.375gm/50ml 50 ML IV SCH ×3 (07:18→15:05)
[2018-04-15] MEDS: benztropine 1mg tablet PO SCH ×2 (07:18→20:49)
[2018-04-15] MEDS: FLUoxetine 20mg capsule PO SCH (07:18)
[2018-04-15] MEDS: lactobacillus rhamnosus 10,000 MMU CELLS/CAPSULE PO SCH ×2 (07:18→20:49)
[2018-04-15] MEDS: divalproex sodium 250mg tablet PO SCH ×2 (07:18→20:49)
[2018-04-15] MEDS: nicotine 21mg patch - 24 hr TD SCH (07:18)
[2018-04-15] MEDS: pantoprazole 40mg Tablet.DR PO SCH (07:18)
[2018-04-15] MEDS: enoxaparin 40mg/0.4ml syringe SQ SCH (07:19)
[2018-04-15] MEDS: lurasidone 20mg tablet PO SCH (07:21)
[2018-04-15] MEDS: HYDROcodone/acetaminophen 5mg/325mg tablet PO PRN ×3 (07:21→16:52)
[2018-04-15 07:35] VITALS: BP 131/77
[2018-04-15] MEDS ORDERED: estrogens, conjug. vaginal cream 45gm tube VG SCH (08:00)
[2018-04-15] MEDS: HYDROmorphone 1 mg/ml syringe IV PRN ×2 (08:46→20:47)
[2018-04-15] MEDS: insulin Lispro (HumaLOG) vial - multi-dose SQ SCH ×3 (08:51→19:25)
[2018-04-15 11:22] VITALS: BP 112/76
[2018-04-15] MEDS ORDERED: HYDROcodone/acetaminophen 5mg/325mg tablet PO PRN (12:25)
[2018-04-15] MEDS ORDERED: normal saline 1000ml 1,000 ML IVB ONE (13:35)
[2018-04-15] MEDS: clonazePAM 0.5mg tablet PO PRN (13:49)
[2018-04-15] MEDS ORDERED: normal saline 1000ml 1,000 ML IV ONE (16:00)
[2018-04-15] MEDS: normal saline 1000ml 1,000 ML IV SCH (17:59)
[2018-04-15 20:00] VITALS: BP 112/69
[2018-04-15 20:06] LABS: CLARITY,URINE SLIGHTLY CLOUDY (Clear); COLOR,URINE YELLOW (Yellow); GLUCOSE, URINE NEGATIVE (Neg); KETONES,URINE 15 mg/dl (Neg); LEUKOCYTE ESTERASE ,URINE NEGATIVE (Neg); NITRITES, URINE NEGATIVE (Neg); OCCULT BLOOD,URINE NEGATIVE (Neg); PROTEIN,URINE NEGATIVE (Neg); UROBILINOGEN,URINE 0.2 E.U/dL (0.2-1.0)
[2018-04-15 20:44] LABS: UA COLLECTION TYPE CLN CATCH MIDSTREAM
[2018-04-15 20:45] LABS: BACTERIA,URINE FEW /HPF (Neg); RBC,URINE NONE SEEN /HPF (0-2); SQUAMOUS EPITHELIAL CELL,UR FEW /LPF (FEW); WBC,URINE NONE SEEN /HPF (0-4)
[2018-04-15] MEDS: prazosin 1mg capsule PO SCH (20:49)
[2018-04-15] MEDS: QUEtiapine 25mg tablet PO SCH (20:50)
[2018-04-15] MEDS: amitriptyline 25mg tablet PO SCH (20:50)
[2018-04-15] MEDS: insulin glargine (Lantus) pen - multi-dose SQ SCH (20:58)
[2018-04-16] VITALS: BP 111/74
[2018-04-16] MEDS: piperacillin/tazo 3.375gm/50ml 50 ML IV SCH ×3 (00:50→16:38)
[2018-04-16] MEDS: normal saline 1000ml 1,000 ML IV SCH ×3 (01:25→17:25)
[2018-04-16] MEDS: HYDROmorphone 1 mg/ml syringe IV PRN (03:29)
[2018-04-16] MEDS ORDERED: magnesium hydroxide 30ml (MOM) UD suspension PO PRN (06:55)
[2018-04-16 07:04] LABS: BASOPHILS % (AUTO) 0.1 % (0-1); EOSINOPHILS # (AUTO) 0.2 X10'3 (0-0.9); EOSINOPHILS % (AUTO) 1.9 % (0-6); HEMOGLOBIN 10.3 g/dl (12.0-16.0); LYMPHOCYTES # (AUTO) 2.1 X10'3 (1.1-4.8); LYMPHOCYTES % (AUTO) 16.2 % (21-51); MEAN CORPUSCULAR HGB CONC 33.3 % (33.0-36.5); MEAN CORPUSCULAR VOLUME 81.1 FL (78-98); MEAN PLATELET VOLUME 7.5 FL (7.4-10.4); MONOCYTES # (AUTO) 1.2 X10'3 (0-0.9); MONOCYTES % (AUTO) 9.4 % (2-12); NEUTROPHILS # (AUTO) 9.4 X10'3 (1.8-7.7); NEUTROPHILS % (AUTO) 72.4 % (42-75); PLATELET COUNT 303 X10'3 (140-440); RED BLOOD COUNT 3.82 X10'6 (4.20-5.60); WHITE BLOOD COUNT 12.9 X10'3 (4.5-11.0)
[2018-04-16 07:20] LABS: ALANINE AMINOTRANSFERASE 15 U/L (12-78); ALBUMIN 1.8 G/DL (3.4-5.0); ALBUMIN/GLOBULIN RATIO 0.4 (1.1-1.5); ALKALINE PHOSPHATASE 78 IU/L (46-116); ANION GAP 8 (8-16); ASPARTATE AMINO TRANSFERASE 7 U/L (10-37); BILIRUBIN,TOTAL 0.3 MG/DL (0.1-1.0); BLOOD UREA NITROGEN 3 MG/DL (7-18); BUN/CREATININE RATIO 3.4 (6.6-38.0); CALCIUM 7.7 MG/DL (8.5-10.1); CHLORIDE 103 MMOL/L (99-107); CREATININE 0.89 MG/DL (0.40-0.90); GLUCOSE 179 MG/DL (70-104); MAGNESIUM 1.9 MG/DL (1.5-2.4); POTASSIUM 3.8 MMOL/L (3.5-5.1); SODIUM 137 MMOL/L (135-145); TOTAL CARBON DIOXIDE 25.8 MMOL/L (24-32); TOTAL PROTEIN 6.3 G/DL (6.4-8.2); eGFR 73 ML/MIN
[2018-04-16 08:00] VITALS: BP 98/64
[2018-04-16] MEDS: K and/or MAG REPLACEMENT MC SCH (08:00)
[2018-04-16] MEDS: insulin Lispro (HumaLOG) vial - multi-dose SQ SCH ×2 (08:56→13:21)
[2018-04-16] MEDS: lurasidone 20mg tablet PO SCH (08:59)
[2018-04-16] MEDS: benztropine 1mg tablet PO SCH (08:59)
[2018-04-16] MEDS: divalproex sodium 250mg tablet PO SCH (08:59)
[2018-04-16] MEDS: lactobacillus rhamnosus 10,000 MMU CELLS/CAPSULE PO SCH (09:00)
[2018-04-16] MEDS: pantoprazole 40mg Tablet.DR PO SCH (09:00)
[2018-04-16] MEDS: enoxaparin 40mg/0.4ml syringe SQ SCH (09:01)
[2018-04-16] MEDS: nicotine 21mg patch - 24 hr TD SCH (09:01)
[2018-04-16] MEDS: FLUoxetine 20mg capsule PO SCH (09:05)
[2018-04-16] MEDS: HYDROcodone/acetaminophen 5mg/325mg tablet PO PRN ×2 (09:10→16:39)
[2018-04-16] MEDS ORDERED: normal saline 1000ml 1,000 ML IVB ONE (11:09)
[2018-04-16 12:00] VITALS: BP 98/44
[2018-04-16] MEDS ORDERED: CLIN-5 (15:12)
[2018-04-16] MEDS ORDERED: ACET1TAB12 PO (16:57)
== END 2018-04-16 18:05 | disposition home or self-care (01) | DRG 224 ==
LOC: ER 00:59 → ED HOLD 05:05 → PCU 3S 05:49 → ICU 2S 14:34 → PCU 3S 04-12 22:00 → SUR 3N 04-14 15:26
PROVIDERS: ADMIT Family Medicine; ATTEND Family Medicine
PROC: 0DNW4ZZ Release Peritoneum, Percutaneous Endoscopic Approach (ICD-10-PCS; 2018-04-11)
PROC: 0DBJ4ZX Excision of Appendix, Percutaneous Endoscopic Approach, Diagnostic (ICD-10-PCS; principal; 2018-04-11 12:47)
DX: K35.3 Acute appendicitis with localized peritonitis (principal); N17.9 Acute kidney failure, unspecified; Z68.41 Body mass index [BMI] 40.0-44.9, adult; E66.01 Morbid (severe) obesity due to excess calories; E11.65 Type 2 diabetes mellitus with hyperglycemia; F17.210 Nicotine dependence, cigarettes, uncomplicated; F41.9 Anxiety disorder, unspecified; E86.0 Dehydration; J45.909 Unspecified asthma, uncomplicated; N73.6 Female pelvic peritoneal adhesions (postinfective); Z83.3 Family history of diabetes mellitus; Z85.41 Personal history of malignant neoplasm of cervix uteri; Z90.710 Acquired absence of both cervix and uterus; Z88.8 Allergy status to other drugs, medicaments and biological substances; Z98.51 Tubal ligation status; Z79.899 Other long term (current) drug therapy; Z91.012 Allergy to eggs; Z79.4 Long term (current) use of insulin
CPT/HCPCS: 36415; 36600; 74176; 80053; 81001; 81025; 82150; 82550; 82803; 82948; 83036; 83605; 83690; 83735; 83880; 84145; 85018; 85025; 85610; 85651; 86140; 87040; 87070; 87077; 87088; 93005; 94002; 94667; 94760; 96361; 96374; 96375; 99285; A4315; A4353; A6213; A6251; A6449; A7000; J1170; J1650; J1815; J1885; J2001; J2175; J2250; J2405; J2543; J2704; J2710; J3010; J3490; J7030; J7120

== ENCOUNTER 2018-05-10 08:17 | Day surgery (SDC) | payer MEDICAID ==
[2018-05-10] VITALS (15 sets, daily range): BP systolic 109–165; BP diastolic 71–110
[~2018-05-10] VITALS: Ht 167.6 cm; Wt 112.9 kg
[~2018-05-10 08:17] MED LIST changes: +ACET1TAB12 PO; +AMIT-106 PO; -BACDS PO; +BENZ1TAB7 PO; -CEPH-571 PO; +CLIN-5; +DICY10CA88 PO; +DIVA-76 PO; +ESOM20CA PO; -HYDR-569 PO; +LURA80TA3 PO; +NABU750T2 PO; -ONDA4TAB9 SL; -ONDA8TAB6 PO; -PHEN-824 PO; +PRAM0.252 PO; +PRAZ1CAP5 PO; +QUET50TA PO
[2018-05-10] MEDS ORDERED: normal saline 1000ml 1,000 ML IV PRN (08:35)
[2018-05-10] MEDS ORDERED: CYCL-1 PO (09:16)
[2018-05-10] MEDS ORDERED: PRAZ1CAP2 PO (09:16)
[2018-05-10 10:23] LABS: BASOPHILS # (AUTO) 0.1 X10'3 (0-0.2); BASOPHILS % (AUTO) 0.7 % (0-1); EOSINOPHILS # (AUTO) 0.4 X10'3 (0-0.9); HEMATOCRIT 44.2 % (35.0-45.0); HEMOGLOBIN 14.5 g/dl (12.0-16.0); LYMPHOCYTES # (AUTO) 3.3 X10'3 (1.1-4.8); LYMPHOCYTES % (AUTO) 34.7 % (21-51); MEAN CORPUSCULAR HEMOGLOBIN 25.5 PG (27.0-31.0); MEAN CORPUSCULAR HGB CONC 32.8 % (33.0-36.5); MEAN CORPUSCULAR VOLUME 77.8 FL (78-98); MEAN PLATELET VOLUME 8.7 FL (7.4-10.4); MONOCYTES # (AUTO) 0.4 X10'3 (0-0.9); MONOCYTES % (AUTO) 4.2 % (2-12); NEUTROPHILS # (AUTO) 5.4 X10'3 (1.8-7.7); NEUTROPHILS % (AUTO) 56.4 % (42-75); PLATELET COUNT 304 X10'3 (140-440); RED BLOOD COUNT 5.68 X10'6 (4.20-5.60); WHITE BLOOD COUNT 9.6 X10'3 (4.5-11.0)
[2018-05-10 10:32] LABS: PROTHROMBIN TIME 10.1 SECONDS (9.0-12.0)
[2018-05-10 10:36] LABS: ALBUMIN 3.7 G/DL (3.4-5.0); ANION GAP 10 (8-16); BLOOD UREA NITROGEN 11 MG/DL (7-18); BUN/CREATININE RATIO 9.6 (6.6-38.0); CALCIUM 9.3 MG/DL (8.5-10.1); CHLORIDE 99 MMOL/L (99-107); CREATININE 1.14 MG/DL (0.40-0.90); GLUCOSE 274 MG/DL (70-104); POTASSIUM 4.7 MMOL/L (3.5-5.1); SODIUM 136 MMOL/L (135-145); TOTAL CARBON DIOXIDE 26.7 MMOL/L (24-32); eGFR 55 ML/MIN
[2018-05-10] MEDS ORDERED: LIDOcaine 1%/PF 5ML 10 MG/ML VIAL SQ ONE (11:05)
[2018-05-10] MEDS ORDERED: fentaNYL/PF 50MCG/1 ML 2ML syringe IV PRN (11:05)
[2018-05-10] MEDS ORDERED: midazolam 2 mg/2 ml injection IV PRN (11:05)
[2018-05-10] MEDS ORDERED: midazolam 2 mg/2 ml injection ONE (11:13)
[2018-05-10] MEDS ORDERED: LIDOcaine 1%/PF 5ML 10 MG/ML VIAL ONE (11:13)
[2018-05-10] MEDS ORDERED: fentaNYL/PF 50MCG/1 ML 2ML syringe ONE (11:13)
== END 2018-05-10 13:08 | disposition home or self-care (01) ==
LOC: SSTAY O 08:17
PROVIDERS: ATTEND Radiology Diagnostic Radiology
DX: K35.3 Acute appendicitis with localized peritonitis (principal); J45.998 Other asthma; E11.9 Type 2 diabetes mellitus without complications; F17.210 Nicotine dependence, cigarettes, uncomplicated; K21.9 Gastro-esophageal reflux disease without esophagitis; F43.10 Post-traumatic stress disorder, unspecified; F32.9 Major depressive disorder, single episode, unspecified; F41.8 Other specified anxiety disorders; Z72.89 Other problems related to lifestyle; Z87.11 Personal history of peptic ulcer disease; Z85.41 Personal history of malignant neoplasm of cervix uteri; Z90.49 Acquired absence of other specified parts of digestive tract; Z90.710 Acquired absence of both cervix and uterus; Z98.51 Tubal ligation status; Z79.891 Long term (current) use of opiate analgesic; Z79.2 Long term (current) use of antibiotics; Z79.4 Long term (current) use of insulin; Z91.012 Allergy to eggs; Z88.8 Allergy status to other drugs, medicaments and biological substances; Z79.899 Other long term (current) drug therapy; Z98.890 Other specified postprocedural states; Z82.49 Family history of ischemic heart disease and other diseases of the circulatory system; Z83.3 Family history of diabetes mellitus
CPT/HCPCS: 36415; 49406; 80048; 82948; 85025; 85610; 87070; 87077; 87186; 99152; 99153; J2001; J2250; J3010; J7030; 47000

== ENCOUNTER 2019-01-01 14:14 | Emergency (ER) | payer MEDICAID ==
[~2019-01-01] VITALS: Ht 167.6 cm; Wt 116.0 kg
[~2019-01-01 14:14] MED LIST changes: -ACET1TAB12 PO; -AMIT-106 PO; -BENZ1TAB7 PO; -CLIN-5; +CYCL-1 PO; -DICY10CA88 PO; -ESOM20CA PO; -FLUO20CA39 PO; -HYDR-565 PO; -INSU100V12 SQ; -INSU100V36 SQ; -NABU750T2 PO; +ONDA4TAB6 PO; -PRAM0.252 PO; +PRAZ1CAP2 PO; -PRAZ1CAP5 PO; -QUET50TA PO
[2019-01-01 14:56] LABS: CLARITY,URINE CLEAR (Clear); COLOR,URINE STRAW (Yellow); GLUCOSE, URINE >=1000 mg/dl (Neg); KETONES,URINE 15 mg/dl (Neg); LEUKOCYTE ESTERASE ,URINE NEGATIVE (Neg); NITRITES, URINE NEGATIVE (Neg); OCCULT BLOOD,URINE NEGATIVE (Neg); PROTEIN,URINE NEGATIVE (Neg); UROBILINOGEN,URINE 0.2 E.U/dL (0.2-1.0)
[2019-01-01 14:57] LABS: UA COLLECTION TYPE CLN CATCH MIDSTREAM
[2019-01-01 14:58] LABS: URINE HCG NEGATIVE (NEG)
[2019-01-01 15:01] LABS: BACTERIA,URINE FEW /HPF (Neg); RBC,URINE 0-2 /HPF (0-2); SQUAMOUS EPITHELIAL CELL,UR MODERATE /LPF (FEW); WBC,URINE 0-4 /HPF (0-4)
[2019-01-01 15:08] LABS: BASOPHILS # (AUTO) 0.1 X10'3 (0-0.2); EOSINOPHILS # (AUTO) 0.2 X10'3 (0-0.9); EOSINOPHILS % (AUTO) 2.1 % (0-6); HEMATOCRIT 46.5 % (35.0-45.0); HEMOGLOBIN 15.7 g/dl (12.0-16.0); LYMPHOCYTES # (AUTO) 2.9 X10'3 (1.1-4.8); LYMPHOCYTES % (AUTO) 31.3 % (21-51); MEAN CORPUSCULAR HEMOGLOBIN 26.6 PG (27.0-31.0); MEAN CORPUSCULAR HGB CONC 33.8 g/dL (33.0-36.5); MEAN CORPUSCULAR VOLUME 78.5 FL (78-98); MEAN PLATELET VOLUME 9.1 FL (7.4-10.4); MONOCYTES # (AUTO) 0.4 X10'3 (0-0.9); MONOCYTES % (AUTO) 3.9 % (2-12); NEUTROPHILS # (AUTO) 5.6 X10'3 (1.8-7.7); NEUTROPHILS % (AUTO) 61.7 % (42-75); PLATELET COUNT 246 X10'3 (140-440); RED BLOOD COUNT 5.91 X10'6 (4.20-5.60); RED CELL DISTRIBUTION WIDTH 14.2 % (11.5-14.5); WHITE BLOOD COUNT 9.2 X10'3 (4.5-11.0)
[2019-01-01] MEDS ORDERED: ondansetron/PF 4mg/2ml inj IV ONE (15:10)
[2019-01-01] MEDS ORDERED: morphine 4 MG/ML inj SYRINge IV PRN (15:10)
[2019-01-01] MEDS ORDERED: normal saline 1000ML IV soln IVB ONE (15:10)
[2019-01-01 15:24] LABS: ALANINE AMINOTRANSFERASE 34 U/L (12-78); ALBUMIN 3.4 G/DL (3.4-5.0); ALBUMIN/GLOBULIN RATIO 0.7 (1.1-1.5); ALKALINE PHOSPHATASE 140 IU/L (46-116); AMYLASE 22 U/L (25-115); ANION GAP 13 (8-16); BILIRUBIN,TOTAL 0.3 MG/DL (0.1-1.0); BLOOD UREA NITROGEN 14 MG/DL (7-18); BUN/CREATININE RATIO 12.6 (6.6-38.0); CALCIUM 9.2 MG/DL (8.5-10.1); CHLORIDE 96 MMOL/L (99-107); CREATININE 1.11 MG/DL (0.40-0.90); LIPASE 99 U/L (73-393); SODIUM 132 MMOL/L (135-145); TOTAL CARBON DIOXIDE 22.8 MMOL/L (24-32); TOTAL PROTEIN 8.1 G/DL (6.4-8.2); eGFR 56 ML/MIN
[2019-01-01 15:28] LABS: ASPARTATE AMINO TRANSFERASE 9 U/L (10-37); GLUCOSE 473 MG/DL (70-104); POTASSIUM 3.7 MMOL/L (3.5-5.1)
[2019-01-01] MEDS ORDERED: insulin regular, human 10 units/0.1 ml syringe IV ONE (15:55)
[2019-01-01 15:58] LABS: HCG SERUM QL NEGATIVE
[2019-01-01 17:35] VITALS: BP 116/66
== END 2019-01-01 17:30 | disposition home or self-care (01) ==
LOC: ER 14:14
DX: E11.65 Type 2 diabetes mellitus with hyperglycemia (principal); J45.909 Unspecified asthma, uncomplicated; F17.200 Nicotine dependence, unspecified, uncomplicated; Z90.710 Acquired absence of both cervix and uterus; Z98.51 Tubal ligation status; Z98.890 Other specified postprocedural states; Z91.012 Allergy to eggs; Z88.8 Allergy status to other drugs, medicaments and biological substances; Z79.899 Other long term (current) drug therapy
CPT/HCPCS: 36415; 71045; 80053; 81001; 81025; 82150; 82948; 83690; 84145; 84703; 85025; 85610; 93005; 96361; 96374; 96375; 99284; J2270; J2405; J7030

== ENCOUNTER 2019-03-26 12:20 | Outpatient (CLI) | payer MEDICAID ==
[2019-03-26] MEDS ORDERED: SENN-162 PO (15:36)
== END 2019-03-26 23:59 | disposition home or self-care (01) ==
LOC: LAB 12:20
PROVIDERS: ATTEND Surgery
DX: K80.20 Calculus of gallbladder without cholecystitis without obstruction (principal); J45.909 Unspecified asthma, uncomplicated; E11.9 Type 2 diabetes mellitus without complications
CPT/HCPCS: 36415; 82247

== ENCOUNTER 2019-03-26 13:14 | Emergency (ER) | payer MEDICAID ==
[~2019-03-26] VITALS: Ht 160 cm; Wt 117.0 kg
[2019-03-26] MEDS ORDERED: ondansetron/PF 4mg/2ml inj IV ONE (13:45)
[2019-03-26] MEDS ORDERED: morphine 4 MG/ML inj SYRINge IV PRN (13:45)
[2019-03-26] MEDS ORDERED: normal saline 1000ML IV soln IVB ONE (13:45)
[2019-03-26 14:04] LABS: BASOPHILS % (AUTO) 0.4 % (0-1); EOSINOPHILS # (AUTO) 0.3 X10'3 (0-0.9); EOSINOPHILS % (AUTO) 2.7 % (0-6); HEMATOCRIT 42.5 % (35.0-45.0); HEMOGLOBIN 13.8 g/dl (12.0-16.0); LYMPHOCYTES # (AUTO) 3.5 X10'3 (1.1-4.8); LYMPHOCYTES % (AUTO) 35.5 % (21-51); MEAN CORPUSCULAR HEMOGLOBIN 26.4 PG (27.0-31.0); MEAN CORPUSCULAR HGB CONC 32.4 g/dL (33.0-36.5); MEAN CORPUSCULAR VOLUME 81.5 FL (78-98); MEAN PLATELET VOLUME 8.5 FL (7.4-10.4); MONOCYTES # (AUTO) 0.6 X10'3 (0-0.9); MONOCYTES % (AUTO) 5.7 % (2-12); NEUTROPHILS # (AUTO) 5.5 X10'3 (1.8-7.7); NEUTROPHILS % (AUTO) 55.7 % (42-75); PLATELET COUNT 198 X10'3 (140-440); RED BLOOD COUNT 5.22 X10'6 (4.20-5.60); RED CELL DISTRIBUTION WIDTH 14.7 % (11.5-14.5); WHITE BLOOD COUNT 9.8 X10'3 (4.5-11.0)
[2019-03-26 14:16] LABS: ALANINE AMINOTRANSFERASE 49 U/L (12-78); ALBUMIN 3.1 G/DL (3.4-5.0); ALBUMIN/GLOBULIN RATIO 0.7 (1.1-1.5); ALKALINE PHOSPHATASE 96 IU/L (46-116); ANION GAP 7 (8-16); ASPARTATE AMINO TRANSFERASE 31 U/L (10-37); BILIRUBIN,TOTAL 0.7 MG/DL (0.1-1.0); BLOOD UREA NITROGEN 8 MG/DL (7-18); BUN/CREATININE RATIO 8.1 (6.6-38.0); CALCIUM 8.3 MG/DL (8.5-10.1); CHLORIDE 103 MMOL/L (99-107); CREATININE 0.99 MG/DL (0.40-0.90); GLUCOSE 259 MG/DL (70-104); POTASSIUM 4.2 MMOL/L (3.5-5.1); SODIUM 139 MMOL/L (135-145); TOTAL CARBON DIOXIDE 29.4 MMOL/L (24-32); TOTAL PROTEIN 7.4 G/DL (6.4-8.2); eGFR 64 ML/MIN
[2019-03-26 14:19] LABS: LIPASE < 50 U/L (73-393); TROPONIN I < 0.04 NG/ML (0.0-0.05)
[2019-03-26 15:05] LABS: CLARITY,URINE CLOUDY (Clear); COLOR,URINE YELLOW (Yellow); GLUCOSE, URINE 250 mg/dl (Neg); KETONES,URINE NEGATIVE (Neg); LEUKOCYTE ESTERASE ,URINE NEGATIVE (Neg); NITRITES, URINE NEGATIVE (Neg); OCCULT BLOOD,URINE NEGATIVE (Neg); PH,URINE 5.5 (4.8-8.0); PROTEIN,URINE 30 mg/dl (Neg)
[2019-03-26 15:06] LABS: UA COLLECTION TYPE CLN CATCH MIDSTREAM
[2019-03-26 15:07] LABS: URINE HCG NEGATIVE (NEG)
[2019-03-26 15:12] VITALS: BP 120/77
[2019-03-26 15:14] LABS: BACTERIA,URINE 1+ /HPF (Neg); RBC,URINE NONE SEEN /HPF (0-2); SQUAMOUS EPITHELIAL CELL,UR MODERATE /LPF (FEW)
[2019-03-26 15:15] LABS: CAL OXALATE CRYSTALS FEW /HPF (NEGATIVE); MUCUS STRANDS NONE SEEN /LPF (Neg)
[2019-03-26] MEDS ORDERED: SENN-162 PO (15:36)
== END 2019-03-26 15:55 | disposition home or self-care (01) ==
LOC: ER 13:15
DX: G89.18 Other acute postprocedural pain (principal); R10.84 Generalized abdominal pain; J45.909 Unspecified asthma, uncomplicated; E11.9 Type 2 diabetes mellitus without complications; F41.9 Anxiety disorder, unspecified; F17.210 Nicotine dependence, cigarettes, uncomplicated; Z98.890 Other specified postprocedural states; Z90.710 Acquired absence of both cervix and uterus; Z98.51 Tubal ligation status; Z85.89 Personal history of malignant neoplasm of other organs and systems; Z90.49 Acquired absence of other specified parts of digestive tract; Z88.8 Allergy status to other drugs, medicaments and biological substances; Z91.012 Allergy to eggs; Z79.899 Other long term (current) drug therapy
CPT/HCPCS: 36415; 74021; 80053; 81001; 81025; 83690; 84484; 85025; 87088; 93005; 96374; 96375; 99284; J2270; J2405; J7030

== ENCOUNTER 2020-10-16 14:02 | Emergency (ER) | payer MEDICAID ==
[~2020-10-16] VITALS: Ht 167.6 cm; Wt 94.3 kg
[~2020-10-16 14:02] MED LIST changes: +SENN-263 PO
[2020-10-16 15:03] LABS: BASOPHILS # (AUTO) 0.1 X10'3 (0-0.2); BASOPHILS % (AUTO) 0.6 % (0-1); EOSINOPHILS # (AUTO) 0.3 X10'3 (0-0.9); EOSINOPHILS % (AUTO) 2.5 % (0-6); HEMATOCRIT 44.5 % (35.0-45.0); HEMOGLOBIN 15.3 g/dl (12.0-16.0); LYMPHOCYTES # (AUTO) 4.1 X10'3 (1.1-4.8); LYMPHOCYTES % (AUTO) 36.1 % (21-51); MEAN CORPUSCULAR HEMOGLOBIN 26.9 PG (27.0-31.0); MEAN CORPUSCULAR HGB CONC 34.3 g/dL (33.0-36.5); MEAN CORPUSCULAR VOLUME 78.5 FL (78-98); MEAN PLATELET VOLUME 9.1 FL (7.4-10.4); MONOCYTES # (AUTO) 0.4 X10'3 (0-0.9); MONOCYTES % (AUTO) 3.8 % (2-12); NEUTROPHILS # (AUTO) 6.5 X10'3 (1.8-7.7); PLATELET COUNT 236 X10'3 (140-440); RED BLOOD COUNT 5.67 X10'6 (4.20-5.60); RED CELL DISTRIBUTION WIDTH 14.5 % (11.5-14.5); WHITE BLOOD COUNT 11.4 X10'3 (4.5-11.0)
[2020-10-16 15:19] LABS: ALBUMIN 3.4 G/DL (3.4-5.0); ALBUMIN/GLOBULIN RATIO 0.7 (1.1-1.5); ALKALINE PHOSPHATASE 156 IU/L (46-116); ANION GAP 12 (8-16); BILIRUBIN,TOTAL 0.4 MG/DL (0.1-1.0); BLOOD UREA NITROGEN 11 MG/DL (7-18); BUN/CREATININE RATIO 12.2 (6.6-38.0); CALCIUM 9.3 MG/DL (8.5-10.1); CHLORIDE 98 MMOL/L (99-107); SODIUM 134 MMOL/L (135-145); TOTAL CARBON DIOXIDE 23.8 MMOL/L (24-32); TOTAL PROTEIN 8.1 G/DL (6.4-8.2); eGFR 71 ML/MIN
[2020-10-16 15:20] LABS: ALANINE AMINOTRANSFERASE 25 U/L (12-78); ASPARTATE AMINO TRANSFERASE 18 U/L (10-37); POTASSIUM 4.1 MMOL/L (3.5-5.1)
[2020-10-16 15:21] LABS: GLUCOSE 493 MG/DL (70-104)
[2020-10-16] MEDS ORDERED: normal saline 1000ML IV soln IVB ONE (15:35)
[2020-10-16] MEDS ORDERED: insulin regular, human 10 units/0.1 ml syringe SQ ONE ×2 (15:35→17:55)
[2020-10-16 16:00] LABS: LIPASE 107 U/L (73-393)
[2020-10-16] MEDS ORDERED: morphine 4 MG/ML inj SYRINge IV ONE (18:05)
[2020-10-16 18:34] LABS: CLARITY,URINE SLIGHTLY CLOUDY (Clear); COLOR,URINE YELLOW (Yellow); GLUCOSE, URINE >=1000 mg/dl (Neg); KETONES,URINE 15 mg/dl (Neg); LEUKOCYTE ESTERASE ,URINE NEGATIVE (Neg); NITRITES, URINE NEGATIVE (Neg); OCCULT BLOOD,URINE TRACE-INTACT (Neg); PH,URINE 5.5 (4.8-8.0); PROTEIN,URINE 30 mg/dl (Neg); UROBILINOGEN,URINE 0.2 E.U/dL (0.2-1.0)
[2020-10-16 18:56] VITALS: BP 119/79
[2020-10-16 18:59] LABS: BACTERIA,URINE 1+ /HPF (Neg); RBC,URINE 0-2 /HPF (0-2); UA COLLECTION TYPE CLN CATCH MIDSTREAM
[2020-10-16 19:00] LABS: SQUAMOUS EPITHELIAL CELL,UR FEW /LPF (FEW)
[2020-10-16] MEDS ORDERED: CEPH-585 PO (19:06)
[2020-10-16] MEDS ORDERED: cephalexin 250mg capsule PO ONE (19:10)
== END 2020-10-16 19:25 | disposition home or self-care (01) ==
LOC: ER 14:03
DX: E11.65 Type 2 diabetes mellitus with hyperglycemia (principal); N39.0 Urinary tract infection, site not specified; J45.909 Unspecified asthma, uncomplicated; F41.9 Anxiety disorder, unspecified; Z85.41 Personal history of malignant neoplasm of cervix uteri; Z90.710 Acquired absence of both cervix and uterus; Z98.51 Tubal ligation status; Z98.890 Other specified postprocedural states; Z88.8 Allergy status to other drugs, medicaments and biological substances; Z91.012 Allergy to eggs; Z79.899 Other long term (current) drug therapy
CPT/HCPCS: 36415; 80053; 81001; 82948; 83690; 85025; 87077; 87088; 87186; 96361; 96372; 96374; 99284; J1815; J2270; J7030

== ENCOUNTER 2021-04-04 16:21 | Emergency (ER) | payer MEDICAID | END 2021-04-04 18:56 | disposition left against medical advice (07) | LOC: ER 16:22 | DX: R10.30 Lower abdominal pain, unspecified (principal); Z53.21 Procedure and treatment not carried out due to patient leaving prior to being seen by health care provider ==

== ENCOUNTER 2021-04-08 10:41 | Emergency (ER) | payer MEDICAID ==
[~2021-04-08] VITALS: Ht 167.6 cm; Wt 113.6 kg
[2021-04-08 11:36] LABS: URINE HCG NEGATIVE (NEG)
[2021-04-08 11:44] LABS: CLARITY,URINE CLOUDY (Clear); COLOR,URINE YELLOW (Yellow); GLUCOSE, URINE >=1000 mg/dl (Neg); KETONES,URINE NEGATIVE (Neg); LEUKOCYTE ESTERASE ,URINE NEGATIVE (Neg); NITRITES, URINE NEGATIVE (Neg); OCCULT BLOOD,URINE SMALL (Neg); PROTEIN,URINE 30 mg/dl (Neg); UROBILINOGEN,URINE 0.2 E.U/dL (0.2-1.0)
[2021-04-08 11:45] LABS: UA COLLECTION TYPE CLN CATCH MIDSTREAM
[2021-04-08 11:52] LABS: BACTERIA,URINE 2+ /HPF (Neg); MUCUS STRANDS NONE SEEN /LPF (Neg); SQUAMOUS EPITHELIAL CELL,UR NONE SEEN /LPF (FEW); WBC CLUMPS,URINE MODERATE /HPF (NEGATIVE); WBC,URINE 50-100 /HPF (0-4)
[2021-04-08 12:29] LABS: BASOPHILS % (AUTO) 0.4 % (0-1); EOSINOPHILS # (AUTO) 0.4 X10'3 (0-0.9); HEMOGLOBIN 14.3 g/dl (12.0-16.0); LYMPHOCYTES # (AUTO) 3.8 X10'3 (1.1-4.8); LYMPHOCYTES % (AUTO) 39.7 % (21-51); MEAN CORPUSCULAR HGB CONC 33.4 g/dL (33.0-36.5); MEAN CORPUSCULAR VOLUME 80.8 FL (78-98); MEAN PLATELET VOLUME 9.3 FL (7.4-10.4); MONOCYTES # (AUTO) 0.5 X10'3 (0-0.9); MONOCYTES % (AUTO) 5.5 % (2-12); NEUTROPHILS # (AUTO) 4.8 X10'3 (1.8-7.7); NEUTROPHILS % (AUTO) 50.4 % (42-75); PLATELET COUNT 218 X10'3 (140-440); RED BLOOD COUNT 5.32 X10'6 (4.20-5.60); RED CELL DISTRIBUTION WIDTH 13.7 % (11.5-14.5); WHITE BLOOD COUNT 9.6 X10'3 (4.5-11.0)
[2021-04-08 12:50] LABS: ALANINE AMINOTRANSFERASE 31 U/L (12-78); ALBUMIN 3.3 G/DL (3.4-5.0); ALBUMIN/GLOBULIN RATIO 0.8 (1.1-1.5); ALKALINE PHOSPHATASE 131 IU/L (46-116); ASPARTATE AMINO TRANSFERASE 14 U/L (10-37); BILIRUBIN,TOTAL 0.3 MG/DL (0.1-1.0); BLOOD UREA NITROGEN 12 MG/DL (7-18); BUN/CREATININE RATIO 13.3 (6.6-38.0); CALCIUM 8.5 MG/DL (8.5-10.1); CHLORIDE 105 MMOL/L (99-107); GLUCOSE 257 MG/DL (70-104); LIPASE 55 U/L (73-393); TOTAL CARBON DIOXIDE 26.4 MMOL/L (24-32); TOTAL PROTEIN 7.6 G/DL (6.4-8.2); eGFR 71 ML/MIN
[2021-04-08 12:52] LABS: ANION GAP 10 (8-16); SODIUM 141 MMOL/L (135-145)
[2021-04-08 15:02] VITALS: BP 113/78
[2021-04-08] MEDS ORDERED: CEPH-585 PO (15:12)
== END 2021-04-08 15:16 | disposition home or self-care (01) ==
LOC: ER 10:42
DX: N39.0 Urinary tract infection, site not specified (principal); R10.32 Left lower quadrant pain; J45.909 Unspecified asthma, uncomplicated; E11.9 Type 2 diabetes mellitus without complications; F41.9 Anxiety disorder, unspecified; Z85.41 Personal history of malignant neoplasm of cervix uteri; Z90.710 Acquired absence of both cervix and uterus; Z98.51 Tubal ligation status; Z98.890 Other specified postprocedural states; Z88.8 Allergy status to other drugs, medicaments and biological substances; Z91.012 Allergy to eggs; Z79.2 Long term (current) use of antibiotics; Z79.899 Other long term (current) drug therapy
CPT/HCPCS: 36415; 80053; 81001; 81025; 83690; 85025; 87077; 87088; 87186; 99283

== ENCOUNTER 2021-09-20 13:45 | Day surgery (SDC) | payer MEDICAID ==
[2021-09-19 15:08] LABS: BASOPHILS % (AUTO) 0.5 % (0-1); EOSINOPHILS # (AUTO) 0.3 X10'3 (0-0.9); EOSINOPHILS % (AUTO) 4.5 % (0-6); LYMPHOCYTES # (AUTO) 2.8 X10'3 (1.1-4.8); LYMPHOCYTES % (AUTO) 37.2 % (21-51); MEAN CORPUSCULAR HGB CONC 33.7 g/dL (33.0-36.5); MEAN CORPUSCULAR VOLUME 80.2 FL (78-98); MEAN PLATELET VOLUME 9.1 FL (7.4-10.4); MONOCYTES # (AUTO) 0.6 X10'3 (0-0.9); MONOCYTES % (AUTO) 7.6 % (2-12); NEUTROPHILS # (AUTO) 3.8 X10'3 (1.8-7.7); NEUTROPHILS % (AUTO) 50.2 % (42-75); PRE OP HEMOGLOBIN 13.8 g/dL (12.0-16.0); PRE OP PLATELET COUNT 192 X10'3 (140-440); RED BLOOD COUNT 5.11 X10'6 (4.20-5.60); RED CELL DISTRIBUTION WIDTH 14.2 % (11.5-14.5)
[2021-09-19 15:35] LABS: ALBUMIN 3.1 G/DL (3.4-5.0); ALBUMIN/GLOBULIN RATIO 0.9 (1.1-1.5); ALKALINE PHOSPHATASE 115 IU/L (46-116); BLOOD UREA NITROGEN 14 MG/DL (7-18); CALCIUM 8.6 MG/DL (8.5-10.1); CHLORIDE 106 MMOL/L (99-107); PRE OP ALT 38 U/L (30-65); PRE OP ANION GAP 6 (8-16); PRE OP AST 25 U/L (10-37); PRE OP BILIRUB, TOTAL 0.2 MG/DL (0.0-1.0); PRE OP GLUCOSE 179 MG/DL (70-104); PRE OP POTASSIUM 4.3 MMOL/L (3.4-5.1); PRE OP SODIUM 139 MMOL/L (135-145); TOTAL CARBON DIOXIDE 27.1 MMOL/L (24-32); TOTAL PROTEIN 6.4 G/DL (6.4-8.2); eGFR 63 ML/MIN
[2021-09-20] VITALS (12 sets, daily range): BP systolic 98–143; BP diastolic 57–83
[~2021-09-20] VITALS: Ht 165.1 cm; Wt 118.2 kg
[~2021-09-20 13:45] MED LIST changes: -CLON-528 PO; -CYCL-1 PO; -DIVA-76 PO; +GABA300C PO; +INSU100C10 SQ; +INSU100V9 SQ; -LURA80TA3 PO; -ONDA4TAB6 PO; +QUET100T34 PO; +ROSU10TA28 PO; -SENN-263 PO; +cefazolin/dext.iso 2gm/50ml IV ONE; +famotidine 20mg tablet PO ONE; +ringers solution, lacted 1,000 ML IV SCH
[2021-09-20] MEDS ORDERED: BUPIVAcaine/PF 2.5mg/ml (0.25%) 10ml vial ONE (16:38)
[2021-09-20] MEDS ORDERED: LIDOcaine 1% 30ml preserv. free vial ONE (16:38)
[2021-09-20] MEDS ORDERED: fentaNYL/PF 50MCG/1 ML 2ML syringe ONE ×2 (17:00)
[2021-09-20] MEDS ORDERED: midazolam 1 mg/ML 2ml injection ONE (17:00)
[2021-09-20] MEDS ORDERED: rocuronium 10mg/ml inj IV ONE (17:28)
[2021-09-20] MEDS ORDERED: ceFOXitin 1000 MG inj ONE (17:28)
[2021-09-20] MEDS ORDERED: propofol inj 20 ML IV ONE (17:29)
[2021-09-20] MEDS ORDERED: ondansetron/PF 4mg/2ml inj IV PRN (18:25)
[2021-09-20] MEDS ORDERED: proCHLORperazine 10 MG/2 ml inj IV PRN (18:25)
[2021-09-20] MEDS ORDERED: morphine 2 MG/ML inj. syringe IV PRN (18:25)
[2021-09-20] MEDS ORDERED: meperidine/PF 25mg/ml syringe IV PRN ×2 (18:25)
[2021-09-20] MEDS ORDERED: morphine 4 MG/ML inj SYRINge IV PRN (18:25)
[2021-09-20] MEDS ORDERED: ringers solution, lacted 1,000 ML IV SCH (18:25)
[2021-09-20] MEDS ORDERED: neostigmine methylsulfate 1 MG/ML 10ml vial ONE (18:29)
[2021-09-20] MEDS ORDERED: glycopyrrolate 0.2mg/ml inj ONE (18:29)
[2021-09-20] MEDS ORDERED: sugammadex 200mg/2ml injection IV ONE (18:47)
[2021-09-20] MEDS ORDERED: HYDROcodone/acetaminophen 5mg/325mg tablet PO PRN ×2 (18:50)
[2021-09-20] MEDS: meperidine/PF 25mg/ml syringe IV PRN ×2 (19:40→20:02)
--- NOTE | 2021-09-20 19:40 | NUR ---
Received from OR via [facility], accompanied by Anesthesiologist DR. YATES and report given by Anesthesiologist. PATIENT SLEEPY, NO S/S OF PAIN, V/S WNL, SCD ON, 20G TO LUE, BANDAIDS TO ABD X 3-CDI
--- NOTE | 2021-09-20 20:30 | NUR ---
PT UP GETTING DRESSED, VSS, SOME PAIN-GIVEN SECOND DOSE OF DEMEROL AND 2 NORCO TO HELP WITH TRIP HOME, BANDAIDS TO ABD-CDI, PIV-D/CD CANULA INTACT, PATIENT GIVEN D/C INSTRUCTIONS AND HAS VERBALIZED UNDERSTANDING. PATIENT D/C HOME WITH ALL BELONGINGS AND FAMILY GAVE TRANSPORT HOME.
== END 2021-09-20 20:30 | disposition home or self-care (01) ==
LOC: PAS 13:45
PROVIDERS: ATTEND Surgery
DX: K36 Other appendicitis (principal); N73.6 Female pelvic peritoneal adhesions (postinfective); Z20.822 Contact with and (suspected) exposure to COVID-19; E78.00 Pure hypercholesterolemia, unspecified; E11.9 Type 2 diabetes mellitus without complications; G89.29 Other chronic pain; Z90.710 Acquired absence of both cervix and uterus; Z90.49 Acquired absence of other specified parts of digestive tract; Z98.890 Other specified postprocedural states; Z79.899 Other long term (current) drug therapy; Z79.4 Long term (current) use of insulin; Z91.012 Allergy to eggs; Z88.8 Allergy status to other drugs, medicaments and biological substances; F17.210 Nicotine dependence, cigarettes, uncomplicated; Z72.89 Other problems related to lifestyle; Z83.3 Family history of diabetes mellitus; Z82.61 Family history of arthritis; Z83.2 Family history of diseases of the blood and blood-forming organs and certain disorders involving the immune mechanism; Z80.49 Family history of malignant neoplasm of other genital organs
CPT/HCPCS: 36415; 44970; 80053; 82948; 85025; 87635; 93005; C9803; J0690; J0694; J2175; J2250; J2704; J2710; J3010; J3490; J7030; J7120; S2900; Z7506; Z7508; Z7512; A4215; A4618

== ENCOUNTER 2021-10-14 16:28 | Emergency (ER) | payer MEDICAID ==
[~2021-10-14] VITALS: Ht 167.6 cm; Wt 116.8 kg
[~2021-10-14 16:28] MED LIST changes: -cefazolin/dext.iso 2gm/50ml IV ONE; -famotidine 20mg tablet PO ONE; -ringers solution, lacted 1,000 ML IV SCH
[2021-10-14 16:36] VITALS: BP 129/93
[2021-10-14 17:06] LABS: URINE HCG NEGATIVE (NEG)
[2021-10-14 17:07] LABS: CLARITY,URINE CLEAR (Clear); COLOR,URINE YELLOW (Yellow); GLUCOSE, URINE >=1000 mg/dl (Neg); KETONES,URINE NEGATIVE (Neg); LEUKOCYTE ESTERASE ,URINE NEGATIVE (Neg); NITRITES, URINE NEGATIVE (Neg); OCCULT BLOOD,URINE MODERATE (Neg); PROTEIN,URINE 100 mg/dl (Neg); UROBILINOGEN,URINE 0.2 E.U/dL (0.2-1.0)
[2021-10-14 17:12] LABS: UA COLLECTION TYPE NON-SPECIFIED
[2021-10-14 17:19] LABS: BACTERIA,URINE NONE SEEN /HPF (Neg); MUCUS STRANDS NONE SEEN /LPF (Neg); SQUAMOUS EPITHELIAL CELL,UR FEW /LPF (FEW); WBC,URINE 0-4 /HPF (0-4); YEAST FEW /HPF (NEGATIVE)
[2021-10-14 17:30] LABS: BASOPHILS # (AUTO) 0.1 X10'3 (0-0.2); BASOPHILS % (AUTO) 0.7 % (0-1); EOSINOPHILS # (AUTO) 0.9 X10'3 (0-0.9); EOSINOPHILS % (AUTO) 6.6 % (0-6); HEMATOCRIT 45.2 % (35.0-45.0); HEMOGLOBIN 15.4 g/dl (12.0-16.0); LYMPHOCYTES # (AUTO) 4.4 X10'3 (1.1-4.8); LYMPHOCYTES % (AUTO) 32.2 % (21-51); MEAN CORPUSCULAR VOLUME 79.3 FL (78-98); MONOCYTES # (AUTO) 0.4 X10'3 (0-0.9); MONOCYTES % (AUTO) 2.7 % (2-12); NEUTROPHILS # (AUTO) 7.8 X10'3 (1.8-7.7); NEUTROPHILS % (AUTO) 57.8 % (42-75); PLATELET COUNT 233 X10'3 (140-440); RED CELL DISTRIBUTION WIDTH 13.9 % (11.5-14.5); WHITE BLOOD COUNT 13.5 X10'3 (4.5-11.0)
[2021-10-14 18:01] LABS: ALANINE AMINOTRANSFERASE 38 U/L (12-78); ALBUMIN 3.7 G/DL (3.4-5.0); ALBUMIN/GLOBULIN RATIO 0.9 (1.1-1.5); ALKALINE PHOSPHATASE 201 IU/L (46-116); ANION GAP 17 (8-16); BILIRUBIN,TOTAL 0.3 MG/DL (0.1-1.0); BLOOD UREA NITROGEN 14 MG/DL (7-18); BUN/CREATININE RATIO 12.8 (6.6-38.0); CALCIUM 9.3 MG/DL (8.5-10.1); CHLORIDE 98 MMOL/L (99-107); CREATININE 1.09 MG/DL (0.40-0.90); LIPASE 170 U/L (73-393); SODIUM 138 MMOL/L (135-145); TOTAL PROTEIN 7.9 G/DL (6.4-8.2); eGFR 57 ML/MIN
[2021-10-14 18:11] LABS: GLUCOSE 398 MG/DL (70-104)
[2021-10-14 18:15] LABS: ASPARTATE AMINO TRANSFERASE 26 U/L (10-37)
== END 2021-10-14 20:32 | disposition left against medical advice (07) ==
LOC: ER 16:28
DX: R10.30 Lower abdominal pain, unspecified (principal); R11.0 Nausea; Z53.21 Procedure and treatment not carried out due to patient leaving prior to being seen by health care provider
CPT/HCPCS: 36415; 80053; 81001; 81025; 83690; 85025

== ENCOUNTER 2022-04-13 10:59 | Emergency (ER) | payer MEDICAID ==
[~2022-04-13] VITALS: Ht 167.6 cm; Wt 115.9 kg
[2022-04-13 12:59] LABS: BASOPHILS % (AUTO) 0.5 % (0-1); EOSINOPHILS # (AUTO) 0.3 X10'3 (0-0.9); EOSINOPHILS % (AUTO) 3.5 % (0-6); HEMATOCRIT 43.6 % (35.0-45.0); HEMOGLOBIN 14.8 g/dl (12.0-16.0); LYMPHOCYTES # (AUTO) 3.5 X10'3 (1.1-4.8); LYMPHOCYTES % (AUTO) 40.5 % (21-51); MEAN CORPUSCULAR HEMOGLOBIN 26.9 PG (27.0-31.0); MEAN CORPUSCULAR VOLUME 79.3 FL (78-98); MEAN PLATELET VOLUME 8.8 FL (7.4-10.4); MONOCYTES # (AUTO) 0.9 X10'3 (0-0.9); MONOCYTES % (AUTO) 10.4 % (2-12); NEUTROPHILS # (AUTO) 3.9 X10'3 (1.8-7.7); NEUTROPHILS % (AUTO) 45.1 % (42-75); PLATELET COUNT 209 X10'3 (140-440); RED CELL DISTRIBUTION WIDTH 14.2 % (11.5-14.5); WHITE BLOOD COUNT 8.7 X10'3 (4.5-11.0)
[2022-04-13 13:11] LABS: CLARITY,URINE CLOUDY (Clear); COLOR,URINE YELLOW (Yellow); GLUCOSE, URINE >=1000 mg/dl (Neg); KETONES,URINE TRACE mg/dl (Neg); LEUKOCYTE ESTERASE ,URINE SMALL (Neg); NITRITES, URINE NEGATIVE (Neg); OCCULT BLOOD,URINE SMALL (Neg); PH,URINE 5.5 (4.8-8.0); PROTEIN,URINE >=300 mg/dl (Neg); UROBILINOGEN,URINE 0.2 E.U/dL (0.2-1.0)
[2022-04-13 13:14] LABS: UA COLLECTION TYPE CLN CATCH MIDSTREAM
[2022-04-13 13:18] LABS: SQUAMOUS EPITHELIAL CELL,UR MODERATE /LPF (FEW); TRANSITIONAL EPI CELLS,URINE FEW /HPF; WBC,URINE TNTC /HPF (0-4)
[2022-04-13 13:20] LABS: BACTERIA,URINE FEW /HPF (Neg); RBC,URINE 0-2 /HPF (0-2)
[2022-04-13 13:21] LABS: YEAST FEW /HPF (NEGATIVE)
[2022-04-13 13:27] LABS: ALANINE AMINOTRANSFERASE 34 U/L (12-78); ALBUMIN 3.4 G/DL (3.4-5.0); ALBUMIN/GLOBULIN RATIO 0.7 (1.1-1.5); ALKALINE PHOSPHATASE 133 IU/L (46-116); ANION GAP 10 (8-16); ASPARTATE AMINO TRANSFERASE 24 U/L (10-37); BILIRUBIN,TOTAL 0.3 MG/DL (0.1-1.0); BLOOD UREA NITROGEN 15 MG/DL (7-18); BUN/CREATININE RATIO 14.6 (6.6-38.0); CALCIUM 8.9 MG/DL (8.5-10.1); CHLORIDE 103 MMOL/L (99-107); CREATININE 1.03 MG/DL (0.40-0.90); GLUCOSE 81 MG/DL (70-104); LIPASE 55 U/L (73-393); POTASSIUM 3.1 MMOL/L (3.5-5.1); SODIUM 140 MMOL/L (135-145); TOTAL CARBON DIOXIDE 26.6 MMOL/L (24-32); TOTAL PROTEIN 8.3 G/DL (6.4-8.2); eGFR 60 ML/MIN
[2022-04-13 14:20] LABS: URINE HCG NEGATIVE (NEG)
[2022-04-13 15:26] VITALS: BP 132/91
[2022-04-13] MEDS ORDERED: cephalexin 250mg capsule PO ONE (15:50)
[2022-04-13] MEDS ORDERED: phenazopyridine 100mg tablet PO ONE (15:50)
[2022-04-13] MEDS ORDERED: PHEN-716 PO (15:52)
[2022-04-13] MEDS ORDERED: CEPH-585 PO (15:52)
[2022-04-13] MEDS ORDERED: ketorolac trometh. 30mg/ml inj. IM ONE (15:55)
== END 2022-04-13 16:14 | disposition home or self-care (01) ==
LOC: ER 10:59
DX: N39.0 Urinary tract infection, site not specified (principal); J45.909 Unspecified asthma, uncomplicated; E11.9 Type 2 diabetes mellitus without complications; F31.9 Bipolar disorder, unspecified; Z85.89 Personal history of malignant neoplasm of other organs and systems; Z90.49 Acquired absence of other specified parts of digestive tract; Z88.6 Allergy status to analgesic agent; Z79.899 Other long term (current) drug therapy; Z91.018 Allergy to other foods; Z91.012 Allergy to eggs
CPT/HCPCS: 36415; 80053; 81001; 81025; 83690; 85025; 87088; 96372; 99283; J1885

== ENCOUNTER 2022-05-30 12:00 | Emergency (ER) | payer MEDICAID ==
[~2022-05-30] VITALS: Ht 167.6 cm; Wt 120.5 kg
[~2022-05-30 12:00] MED LIST changes: +CEPH-585 PO; +PHEN-716 PO
[2022-05-30 13:33] LABS: BASOPHILS # (AUTO) 0.1 X10'3 (0-0.2); BASOPHILS % (AUTO) 0.7 % (0-1); EOSINOPHILS # (AUTO) 0.4 X10'3 (0-0.9); EOSINOPHILS % (AUTO) 3.4 % (0-6); HEMATOCRIT 45.6 % (35.0-45.0); HEMOGLOBIN 15.4 g/dl (12.0-16.0); LYMPHOCYTES # (AUTO) 2.5 X10'3 (1.1-4.8); LYMPHOCYTES % (AUTO) 20.7 % (21-51); MEAN CORPUSCULAR HEMOGLOBIN 26.7 PG (27.0-31.0); MEAN CORPUSCULAR HGB CONC 33.8 g/dL (33.0-36.5); MEAN CORPUSCULAR VOLUME 79.1 FL (78-98); MEAN PLATELET VOLUME 9.3 FL (7.4-10.4); MONOCYTES # (AUTO) 0.5 X10'3 (0-0.9); MONOCYTES % (AUTO) 4.5 % (2-12); NEUTROPHILS # (AUTO) 8.7 X10'3 (1.8-7.7); NEUTROPHILS % (AUTO) 70.7 % (42-75); PLATELET COUNT 246 X10'3 (140-440); RED BLOOD COUNT 5.76 X10'6 (4.20-5.60); WHITE BLOOD COUNT 12.3 X10'3 (4.5-11.0)
[2022-05-30 13:47] LABS: ALANINE AMINOTRANSFERASE 42 U/L (12-78); ALBUMIN 3.4 G/DL (3.4-5.0); ALBUMIN/GLOBULIN RATIO 0.7 (1.1-1.5); ALKALINE PHOSPHATASE 114 IU/L (46-116); ANION GAP 9 (8-16); ASPARTATE AMINO TRANSFERASE 36 U/L (10-37); BILIRUBIN,TOTAL 0.5 MG/DL (0.1-1.0); BLOOD UREA NITROGEN 14 MG/DL (7-18); BUN/CREATININE RATIO 13.7 (6.6-38.0); CHLORIDE 99 MMOL/L (99-107); CREATININE 1.02 MG/DL (0.40-0.90); GLUCOSE 357 MG/DL (70-104); LIPASE < 50 U/L (73-393); POTASSIUM 4.5 MMOL/L (3.5-5.1); SODIUM 135 MMOL/L (135-145); TOTAL CARBON DIOXIDE 26.7 MMOL/L (24-32); eGFR 61 ML/MIN
[2022-05-30 13:54] LABS: CLARITY,URINE CLEAR (Clear); COLOR,URINE YELLOW (Yellow); GLUCOSE, URINE 500 mg/dl (Neg); KETONES,URINE 40 mg/dl (Neg); LEUKOCYTE ESTERASE ,URINE NEGATIVE (Neg); NITRITES, URINE NEGATIVE (Neg); OCCULT BLOOD,URINE TRACE-INTACT (Neg); PH,URINE 6.5 (4.8-8.0); PROTEIN,URINE >=300 mg/dl (Neg); UROBILINOGEN,URINE 0.2 E.U/dL (0.2-1.0)
[2022-05-30 13:59] LABS: UA COLLECTION TYPE CLN CATCH MIDSTREAM
[2022-05-30 14:00] LABS: BACTERIA,URINE FEW /HPF (Neg); MUCUS STRANDS NONE SEEN /LPF (Neg); RBC,URINE 0-2 /HPF (0-2); SQUAMOUS EPITHELIAL CELL,UR MODERATE /LPF (FEW)
[2022-05-30] MEDS ORDERED: morphine 2 MG/ML inj. syringe IV ONE (16:15)
[2022-05-30] MEDS ORDERED: metoclopramide 5 mg/ml inj IV ONE (16:15)
[2022-05-30] MEDS ORDERED: normal saline 500ml IV soln 500 ML IV ONE (16:15)
[2022-05-30] MEDS ORDERED: iohexol 300mg/ml 100ml inj. ONE (16:24)
[2022-05-30] MEDS ORDERED: ringers solution, lacted 1,000 ML IV ONE (17:35)
[2022-05-30 17:57] VITALS: BP 143/79
[2022-05-30] MEDS ORDERED: FOSFOMYCIN TROMETHAMINE 3 GM PACKET PO ONE (18:00)
== END 2022-05-30 19:27 | disposition home or self-care (01) ==
LOC: ER 12:00
DX: N39.0 Urinary tract infection, site not specified (principal); R10.32 Left lower quadrant pain; R11.0 Nausea; J45.909 Unspecified asthma, uncomplicated; E11.9 Type 2 diabetes mellitus without complications; F41.9 Anxiety disorder, unspecified; F32.A Depression, unspecified; F17.200 Nicotine dependence, unspecified, uncomplicated; Z85.41 Personal history of malignant neoplasm of cervix uteri; Z90.89 Acquired absence of other organs; Z90.49 Acquired absence of other specified parts of digestive tract; Z90.710 Acquired absence of both cervix and uterus; Z98.51 Tubal ligation status; Z98.890 Other specified postprocedural states; Z88.8 Allergy status to other drugs, medicaments and biological substances; Z91.012 Allergy to eggs; Z79.4 Long term (current) use of insulin; Z79.2 Long term (current) use of antibiotics; Z79.899 Other long term (current) drug therapy
CPT/HCPCS: 36415; 74177; 80053; 81001; 83690; 85025; 87088; 96361; 96374; 96375; 99285; J2270; J2765; J3490; J7120; Q9967; 87077; 87186

== ENCOUNTER 2022-10-10 13:56 | Emergency (ER) | payer MEDICAID ==
[~2022-10-10] VITALS: Ht 167.6 cm; Wt 113.6 kg
[2022-10-10 18:54] LABS: D-DIMER 0.24 MG/L FEU (0-0.50)
[2022-10-10 19:02] LABS: BASOPHILS % (AUTO) 0.4 % (0-1); EOSINOPHILS # (AUTO) 0.4 X10'3 (0-0.9); EOSINOPHILS % (AUTO) 4.6 % (0-6); HEMOGLOBIN 13.6 g/dl (12.0-16.0); LYMPHOCYTES # (AUTO) 2.8 X10'3 (1.1-4.8); LYMPHOCYTES % (AUTO) 35.3 % (21-51); MEAN CORPUSCULAR HEMOGLOBIN 26.9 PG (27.0-31.0); MEAN CORPUSCULAR HGB CONC 32.3 g/dL (33.0-36.5); MEAN CORPUSCULAR VOLUME 83.3 FL (78-98); MEAN PLATELET VOLUME 8.6 FL (7.4-10.4); MONOCYTES # (AUTO) 0.5 X10'3 (0-0.9); NEUTROPHILS # (AUTO) 4.2 X10'3 (1.8-7.7); NEUTROPHILS % (AUTO) 53.7 % (42-75); PLATELET COUNT 218 X10'3 (140-440); RED BLOOD COUNT 5.05 X10'6 (4.20-5.60); RED CELL DISTRIBUTION WIDTH 14.8 % (11.5-14.5); WHITE BLOOD COUNT 7.9 X10'3 (4.5-11.0)
[2022-10-10 19:13] LABS: ALANINE AMINOTRANSFERASE 29 U/L (12-78); ALBUMIN 3.1 G/DL (3.4-5.0); ALBUMIN/GLOBULIN RATIO 0.7 (1.1-1.5); ALKALINE PHOSPHATASE 95 IU/L (46-116); ANION GAP 7 (8-16); ASPARTATE AMINO TRANSFERASE 24 U/L (10-37); BILIRUBIN,TOTAL 0.2 MG/DL (0.1-1.0); BLOOD UREA NITROGEN 11 MG/DL (7-18); BUN/CREATININE RATIO 13.3 (6.6-38.0); CHLORIDE 109 MMOL/L (99-107); CREATININE 0.83 MG/DL (0.40-0.90); GLUCOSE 131 MG/DL (70-104); POTASSIUM 4.6 MMOL/L (3.5-5.1); SODIUM 146 MMOL/L (135-145); TOTAL CARBON DIOXIDE 30.3 MMOL/L (24-32); TOTAL PROTEIN 7.5 G/DL (6.4-8.2); eGFR 77 ML/MIN
[2022-10-10] MEDS ORDERED: potassium Cl 20 mEq SR tablet PO STA (19:53)
[2022-10-10] MEDS ORDERED: furosemide 20MG tablet PO ONE (19:55)
[2022-10-10] MEDS ORDERED: HYDROcodone/acetaminophen 10/325mg tab PO ONE ×2 (19:55→20:15)
[2022-10-10] MEDS ORDERED: ketorolac trometh inj. 60 MG/2 ML VIAL IM ONE (19:55)
[2022-10-10] MEDS ORDERED: POTA-206 PO (19:56)
[2022-10-10] MEDS ORDERED: FURO-150 PO (19:56)
--- NOTE | 2022-10-10 20:15 | NUR ---
patient dropped amber re ordered and wasted with witness
[2022-10-10 20:25] VITALS: BP 152/87
== END 2022-10-10 20:30 | disposition home or self-care (01) ==
LOC: ER 13:56
DX: R22.43 Localized swelling, mass and lump, lower limb, bilateral (principal); J45.909 Unspecified asthma, uncomplicated; E11.9 Type 2 diabetes mellitus without complications; F17.200 Nicotine dependence, unspecified, uncomplicated; Z88.8 Allergy status to other drugs, medicaments and biological substances; Z90.49 Acquired absence of other specified parts of digestive tract; Z98.51 Tubal ligation status
CPT/HCPCS: 36415; 80053; 85025; 85379; 96372; 99284; J1885

== ENCOUNTER 2023-12-15 13:30 | Outpatient (CLI) | payer MEDICAID ==
[~2023-12-15 13:30] MED LIST changes: -CEPH-585 PO; +POTA-206 PO
== END 2023-12-15 23:59 | disposition home or self-care (01) ==
LOC: LAB 13:30
DX: M19.011 Primary osteoarthritis, right shoulder (principal); M25.511 Pain in right shoulder
CPT/HCPCS: 73030

== ENCOUNTER 2024-06-26 14:46 | Outpatient (CLI) | payer MEDICAID ==
[~2024-06-26 14:46] MED LIST changes: -ROSU10TA28 PO; +ROSU10TA72 PO
== END 2024-06-26 23:59 | disposition home or self-care (01) ==
LOC: MRI 14:46
PROVIDERS: ATTEND Physician Assistant Surgical
DX: S43.491A Other sprain of right shoulder joint, initial encounter (principal); M25.511 Pain in right shoulder; M25.551 Pain in right hip; R60.9 Edema, unspecified; X58.XXXA Exposure to other specified factors, initial encounter; Y93.89 Activity, other specified; Y92.89 Other specified places as the place of occurrence of the external cause; Y99.8 Other external cause status; M89.311 Hypertrophy of bone, right shoulder
CPT/HCPCS: 73221